=== PATIENT | female | born 1940 | race Caucasian/White ===

== ENCOUNTER 2017-09-28 12:15 | Inpatient (IN) | payer MEDICARE, OTHER, MEDICAID ==
[2017-09-28 12:47] LABS: ABNORMAL IP MESSAGE 1; HEMATOCRIT 30.4 % (37.0-47.0); HEMOGLOBIN 8.8 g/dl (12.0-16.0); MEAN CORPUSCULAR HEMOGLOBIN 25.7 pg (29.0-33.0); MEAN CORPUSCULAR HGB CONC 28.9 g/dl (32.0-37.0); MEAN CORPUSCULAR VOLUME 88.9 fl (82.0-101.0); MEAN PLATELET VOLUME 11.2 fl (7.4-10.4); NUCLEATED RED BLOOD CELLS% 0.7 /100WBC (0.0-0.0); PLATELET COUNT 207 10^3/UL (140-415); RED BLOOD COUNT 3.42 10^6/ul (4.20-5.40); RED CELL DISTRIBUTION WIDTH 19.9 % (11.5-14.5)
[2017-09-28 12:49] LABS: ADD MAN DIFF? YES; POSITIVE DIFF @See below
[2017-09-28] MEDS: METHYLPREDNISOLONE 125 MG INJ IV (12:54)
[2017-09-28 13:10] LABS: INR 0.93; PARTIAL THROMBOPLASTIN TIME 22.8 Sec (25.0-35.0); PROTIME 12.5 Sec (11.9-14.9)
[2017-09-28 13:14] LABS: ALANINE AMINOTRANSFERASE 70 IU/L (13-69); ALBUMIN 3.3 g/dl (3.3-4.9); ALBUMIN/GLOBULIN RATIO 1.22; ALKALINE PHOSPHATASE 100 IU/L (42-121); ANION GAP 16 (8-16); ASPARTATE AMINO TRANSFERASE 14 IU/L (15-46); BLOOD UREA NITROGEN 72 mg/dl (7-20); CALCIUM 8.8 mg/dl (8.4-10.2); CARBON DIOXIDE 23 mmol/L (21-31); CHLORIDE 109 mmol/L (97-110); CREATININE 2.34 mg/dl (0.44-1.00); GLUCOSE 221 mg/dl (70-220); POTASSIUM 4.8 mmol/L (3.5-5.1); SODIUM 143 mmol/L (135-144)
[2017-09-28 13:18] LABS: ANISOCYTOSIS 3+ (0-0); BAND NEUTROPHILS #M 2.6 10^3/ul (0.0-0.6); BAND NEUTROPHILS % (M) 26 % (0-4); ERYTHROBLAST% (NRBC) (M) 2 % (0-0); GIANT THROMBO% (M) 1 % (0-0); METAMYELOCYTES #M 0.1 10^3/ul (0.0-0.0); METAMYELOCYTES %M 1 % (0-0); MICROCYTOSIS 3+ (0-0); MONOCYTE #M 0.3 10^3/ul (0.3-0.9); MONOCYTES % (M) 3 % (0-11); PLATELET ESTIMATE NORMAL; POIKILOCYTOSIS 1+ (0-0); POLYCHROMASIA 3+ (0-0); SEG NEUT #M 7.3 10^3/ul (1.6-7.5); SEGMENTED NEUTROPHILS (M) % 70 % (39-77); SMUDGE%M 6 % (0-0)
[2017-09-28 13:24] LABS: TROPONIN-I 0.036 ng/ml (0.00-0.12)
[2017-09-28 13:25] LABS: LACTIC ACID 1.4 mmol/L (0.5-2.0)
[2017-09-28] MEDS: ALBUTEROL 0.5% (NEB) 2.5 MG/0.5 ML AMP INH (13:26)
[2017-09-28] MEDS: IPRATROPIUM (NEB) 0.5 MG/2.5 ML AMP INH (13:26)
[2017-09-28] MEDS: DILTIAZEM 25 MG INJ IV (13:58)
[2017-09-28] MEDS ORDERED: ACETAMINOPHEN 325 MG TAB PO ×2 (14:00→14:30)
[2017-09-28] MEDS ORDERED: ONDANSETRON 4 MG INJ IV ×2 (14:00→14:30)
[2017-09-28 14:15] LABS: AADO2 Arterial 201.4 mmHg (7.0-24.0); Allen Test ACCEPTAB; Arterial Base Excess -5.5 mmol/L (-3.0-3); Arterial Blood Gas Oxygen Sat 99.6 mmHG (95.0-100.0); Arterial COHb 0.3 % (0.0-3.0); Arterial Fraction of Oxyhgb 98.9 % (93.0-99.0); Arterial HCO3 20.9 mmol/L (22.0-26.0); Arterial MetHb 0.4 % (0.0-1.5); Arterial Total Hemglobin 10.7 g/dl (12.0-18.0); Arterial pCO2 44.4 mmhg (35-45); Blood Gas IEPAP 15/5; MODE MASK - BIPAP; Site Right Radial
[2017-09-28] MEDS ORDERED: DEXTROSE 50% 50 ML SYRINGE IV ×2 (14:30)
[2017-09-28] MEDS ORDERED: VANCOMYCIN IV PER PHARMACY XX (14:30)
[2017-09-28] MEDS ORDERED: GLUCAGON 1 MG INJ IM (14:30)
[2017-09-28] MEDS ORDERED: GLUCOSE GEL 15 GRAM TUBE PO ×2 (14:30)
[2017-09-28] MEDS ORDERED: GLUCOSE GEL 15 GRAM TUBE BUCCAL (14:30)
[2017-09-28] MEDS: CEFEPIME 1GM/50 ML (PMX) 50 ML IVPB ×2 (14:52→15:57)
[2017-09-28] MEDS ORDERED: VANCOMYCIN 1 GM (PMX) 250 ML IVPB (15:57)
[2017-09-28] MEDS ORDERED: VANCOMYCIN 1.25 GM in SOD CHLORIDE 0.9% 250 ML IVPB (16:00)
[2017-09-28] MEDS: VANCOMYCIN 1.25 GM in SOD CHLORIDE 0.45% 250 ML IVPB (16:27)
[2017-09-28] MEDS: AMIODARONE 900 MG in DEXTROSE 5% 482 ML IV (17:07)
[2017-09-28] MEDS: INSULIN ASPART [NOVOLOG] 3 ML PEN SC ×3 (18:00→21:00)
[2017-09-28] MEDS: ALBUMIN HUMAN 25% 100 ML IV ×2 (18:28→22:30)
[2017-09-28] MEDS: LORAZEPAM 2 MG INJ IV (18:29)
[2017-09-28 18:33] LABS: MAGNESIUM 2.3 mg/dl (1.7-2.5)
[2017-09-28 18:33] LABS: PHOSPHORUS 7.2 mg/dl (2.5-4.9)
[2017-09-28] MEDS: SODIUM CHLORIDE 0.9% 1L BAG IV* (19:57)
[2017-09-28 20:14] LABS: AADO2 Arterial 173.2 mmHg (7.0-24.0); Allen Test ACCEPTAB; Arterial Base Excess -6.5 mmol/L (-3.0-3); Arterial Blood Gas Oxygen Sat 99.2 mmHG (95.0-100.0); Arterial COHb 0.3 % (0.0-3.0); Arterial Fraction of Oxyhgb 98.5 % (93.0-99.0); Arterial HCO3 19.7 mmol/L (22.0-26.0); Arterial MetHb 0.4 % (0.0-1.5); Arterial Total Hemglobin 9.3 g/dl (12.0-18.0); Arterial pCO2 42.4 mmhg (35-45); Blood Gas IEPAP 15/5; MODE MASK - BIPAP; Site Right Radial
[2017-09-28] MEDS: CYCLOSPORINE 0.05% OPH DROPERETTE BOTH EYES (21:00)
[2017-09-28] MEDS: MONTELUKAST 10 MG TAB PO (21:00)
[2017-09-28] MEDS: DOCUSATE SODIUM 100 MG CAP PO (21:00)
[2017-09-28 22:34] LABS: LACTIC ACID 1.2 mmol/L (0.5-2.0)
[2017-09-28 23:43] LABS: CREATINE KINASE 23 IU/L (23-200)
[2017-09-28 23:43] LABS: LACTIC ACID 1.4 mmol/L (0.5-2.0)
[2017-09-28 23:55] LABS: CK INDEX 7.7; CK-MB 1.76 ng/ml (0.0-2.4); TROPONIN-I 0.036 ng/ml (0.00-0.12)
[2017-09-29] MEDS: ALBUMIN HUMAN 25% 100 ML IV (01:24)
[2017-09-29] MEDS: ACCU-CHEK XX (02:00)
[2017-09-29] MEDS: LORAZEPAM 2 MG INJ IV (02:54)
[2017-09-29] MEDS: ACETAMINOPHEN 325 MG TAB PO (04:47)
[2017-09-29 06:16] LABS: ABNORMAL IP MESSAGE 1; HEMATOCRIT 29.3 % (37.0-47.0); HEMOGLOBIN 8.5 g/dl (12.0-16.0); MEAN CORPUSCULAR HEMOGLOBIN 25.8 pg (29.0-33.0); MEAN CORPUSCULAR VOLUME 88.8 fl (82.0-101.0); MEAN PLATELET VOLUME 11.3 fl (7.4-10.4); NUCLEATED RED BLOOD CELLS% 3.7 /100WBC (0.0-0.0); PLATELET COUNT 211 10^3/UL (140-415); RED CELL DISTRIBUTION WIDTH 19.8 % (11.5-14.5)
[2017-09-29 06:16] LABS: WHITE BLOOD COUNT 9.8 10^3/ul (4.8-10.8)
[2017-09-29 06:22] LABS: LACTIC ACID 1.9 mmol/L (0.5-2.0)
[2017-09-29 06:42] LABS: INR 1.08; PROTIME 14.1 Sec (11.9-14.9); PT RATIO 1.1
[2017-09-29 06:43] LABS: PARTIAL THROMBOPLASTIN TIME 20.3 Sec (25.0-35.0)
[2017-09-29 06:46] LABS: ADD MAN DIFF? YES; POSITIVE DIFF @See below
[2017-09-29 07:16] LABS: CK-MB 1.36 ng/ml (0.0-2.4); TROPONIN-I 0.038 ng/ml (0.00-0.12)
[2017-09-29 07:23] LABS: CK INDEX 3.2; CREATINE KINASE 42 IU/L (23-200)
[2017-09-29 07:29] LABS: ANION GAP 23 (8-16); BLOOD UREA NITROGEN 77 mg/dl (7-20); CALCIUM 9.3 mg/dl (8.4-10.2); CARBON DIOXIDE 19 mmol/L (21-31); CHLORIDE 108 mmol/L (97-110); CREATININE 2.43 mg/dl (0.44-1.00); GLUCOSE 149 mg/dl (70-220); MAGNESIUM 2.3 mg/dl (1.7-2.5); SODIUM 144 mmol/L (135-144)
[2017-09-29] MEDS: PANTOPRAZOLE (EC) 40 MG TAB PO (07:33)
[2017-09-29 07:53] LABS: HEMOGLOBIN A1C 6.5 % (0-5.9)
[2017-09-29 07:59] LABS: THYROID STIMULATING HORMONE 0.153 MIU/L (0.465-4.680)
[2017-09-29] MEDS: INSULIN ASPART [NOVOLOG] 3 ML PEN SC ×5 (08:00→21:11)
[2017-09-29] MEDS: MULTIVITAMINS THERAPEUTIC TAB PO (09:00)
[2017-09-29] MEDS: PAROXETINE 20 MG TAB PO (09:00)
[2017-09-29] MEDS: DOCUSATE SODIUM 100 MG CAP PO ×2 (09:00→21:00)
[2017-09-29] MEDS: CYCLOSPORINE 0.05% OPH DROPERETTE BOTH EYES ×2 (09:00→21:00)
[2017-09-29] MEDS: HEPARIN 5,000 UNIT/0.5 ML VIAL SC ×2 (09:54→21:10)
[2017-09-29 10:26] LABS: ANISOCYTOSIS 2+ (0-0); BAND NEUTROPHILS % (M) 21 % (0-4); ERYTHROBLAST% (NRBC) (M) 3 % (0-0); GIANT THROMBO% (M) 6 % (0-0); LYMPHOCYTES #M 0.1 10^3/ul (0.8-2.9); LYMPHOCYTES % (M) 2 % (15-51); METAMYELOCYTES %M 1 % (0-0); MICROCYTOSIS 1+ (0-0); MONOCYTES % (M) 1 % (0-11); OVALOCYTES 1+ (0-0); PLATELET ESTIMATE NORMAL; POIKILOCYTOSIS 1+ (0-0); POLYCHROMASIA 2+ (0-0); SEG NEUT #M 7.5 10^3/ul (1.6-7.5); SEGMENTED NEUTROPHILS (M) % 75 % (39-77); SMUDGE%M 2 % (0-0); TOXIC GRANULATION 1+ (0-0)
[2017-09-29] MEDS: morphine 4 MG/ML VIAL IV (11:40)
[2017-09-29] MEDS: NA POLYST SULFON 15 GM/60 ML BTL PO ×2 (13:00→21:04)
[2017-09-29] MEDS: FUROSEMIDE 40 MG INJ IV (13:14)
[2017-09-29 13:51] LABS: FREE T4 (FREE THYROXINE) 1.18 ng/dl (0.78-2.44)
[2017-09-29] MEDS: CEFEPIME 1GM/50 ML (PMX) 50 ML IVPB (14:30)
[2017-09-29 16:52] LABS: AADO2 Arterial 156.1 mmHg (7.0-24.0); Allen Test ACCEPTAB; Arterial Base Excess -7.3 mmol/L (-3.0-3); Arterial Blood Gas Oxygen Sat 94.7 mmHG (95.0-100.0); Arterial COHb 0.3 % (0.0-3.0); Arterial Fraction of Oxyhgb 94.2 % (93.0-99.0); Arterial HCO3 18.3 mmol/L (22.0-26.0); Arterial MetHb 0.2 % (0.0-1.5); Arterial Total Hemglobin 10.3 g/dl (12.0-18.0); Arterial pCO2 37.2 mmhg (35-45); Blood Gas IEPAP 15/5; Blood Gas PS 10; MODE MASK - BIPAP; Site Right Radial
[2017-09-29 20:05] LABS: ANION GAP 24 (8-16); BLOOD UREA NITROGEN 89 mg/dl (7-20); CALCIUM 8.3 mg/dl (8.4-10.2); CARBON DIOXIDE 18 mmol/L (21-31); CHLORIDE 108 mmol/L (97-110); CREATININE 3.33 mg/dl (0.44-1.00); GLUCOSE 126 mg/dl (70-220); SODIUM 143 mmol/L (135-144)
[2017-09-29 20:12] LABS: POTASSIUM 6.5 mmol/L (3.5-5.1)
[2017-09-29] MEDS: DEXTROSE 50% 50 ML SYRINGE IV (21:05)
[2017-09-29] MEDS: MONTELUKAST 10 MG TAB PO (21:08)
[2017-09-30] MEDS ORDERED: CA CHLORIDE 10% 10 ML SYRINGE IV (01:00)
[2017-09-30] MEDS: CALCIUM GLUCONATE 10% 1 GM in DEXTROSE 5% 100 ML IVPB (01:45)
[2017-09-30] MEDS: ACCU-CHEK XX (02:00)
[2017-09-30 02:14] LABS: POTASSIUM 6.2 mmol/L (3.5-5.1)
[2017-09-30] MEDS: INSULIN ASPART [NOVOLOG] 3 ML PEN SC ×2 (03:30→07:35)
[2017-09-30] MEDS: DEXTROSE 50% 50 ML SYRINGE IV (03:31)
[2017-09-30 05:14] LABS: ABNORMAL IP MESSAGE 1; HEMOGLOBIN 8.8 g/dl (12.0-16.0); MEAN CORPUSCULAR HEMOGLOBIN 25.9 pg (29.0-33.0); MEAN CORPUSCULAR HGB CONC 29.3 g/dl (32.0-37.0); MEAN CORPUSCULAR VOLUME 88.2 fl (82.0-101.0); MEAN PLATELET VOLUME 11.7 fl (7.4-10.4); NUCLEATED RED BLOOD CELLS% 4.3 /100WBC (0.0-0.0); PLATELET COUNT 187 10^3/UL (140-415); RED CELL DISTRIBUTION WIDTH 19.6 % (11.5-14.5)
[2017-09-30 05:14] LABS: WHITE BLOOD COUNT 17.9 10^3/ul (4.8-10.8)
[2017-09-30 05:23] LABS: ADD MAN DIFF? YES; POSITIVE DIFF @See below
[2017-09-30 05:56] LABS: B-TYPE NATRIURETIC PEPTIDE 18300 PG/ML (0-450)
[2017-09-30] MEDS: PANTOPRAZOLE (EC) 40 MG TAB PO (07:05)
[2017-09-30 07:23] LABS: ALBUMIN 3.9 g/dl (3.3-4.9); ANION GAP 25 (8-16); BLOOD UREA NITROGEN 99 mg/dl (7-20); CALCIUM 7.9 mg/dl (8.4-10.2); CARBON DIOXIDE 15 mmol/L (21-31); CHLORIDE 109 mmol/L (97-110); CREATININE 3.93 mg/dl (0.44-1.00); GLUCOSE 147 mg/dl (70-220); PHOSPHORUS 10.7 mg/dl (2.5-4.9); SODIUM 143 mmol/L (135-144)
[2017-09-30 07:31] LABS: POTASSIUM 6.4 mmol/L (3.5-5.1)
[2017-09-30 08:25] LABS: AADO2 Arterial 96.5 mmHg (7.0-24.0); Allen Test ACCEPTAB; Arterial Base Excess -10.4 mmol/L (-3.0-3); Arterial Blood Gas Oxygen Sat 89.8 mmHG (95.0-100.0); Arterial COHb 0.3 % (0.0-3.0); Arterial Fraction of Oxyhgb 89.3 % (93.0-99.0); Arterial HCO3 16.3 mmol/L (22.0-26.0); Arterial MetHb 0.3 % (0.0-1.5); Arterial pCO2 39.1 mmhg (35-45); Blood Gas IEPAP 15/5; Blood Gas PS 1016; MODE MASK - BIPAP; Site Right Radial
[2017-09-30] MEDS ORDERED: BUMETANIDE 1 MG INJ IV (08:30)
[2017-09-30 08:51] LABS: ANION GAP 31 (8-16); BLOOD UREA NITROGEN 101 mg/dl (7-20); CALCIUM 7.9 mg/dl (8.4-10.2); CARBON DIOXIDE 15 mmol/L (21-31); CHLORIDE 108 mmol/L (97-110); CREATININE 3.86 mg/dl (0.44-1.00); GLUCOSE 141 mg/dl (70-220); SODIUM 148 mmol/L (135-144)
[2017-09-30 08:59] LABS: POTASSIUM 6.4 mmol/L (3.5-5.1)
[2017-09-30] MEDS: PAROXETINE 20 MG TAB PO (09:00)
[2017-09-30] MEDS: DOCUSATE SODIUM 100 MG CAP PO ×2 (09:00→21:00)
[2017-09-30] MEDS: MULTIVITAMINS THERAPEUTIC TAB PO (09:00)
[2017-09-30] MEDS: CYCLOSPORINE 0.05% OPH DROPERETTE BOTH EYES ×2 (09:00→21:50)
[2017-09-30] MEDS: NA BICARBONATE 8.4% 50 ML SYG IV (09:04)
[2017-09-30] MEDS: HEPARIN 5,000 UNIT/0.5 ML VIAL SC ×2 (09:08→21:52)
[2017-09-30] MEDS: BUMETANIDE 2 MG in DEXTROSE 5% 17 ML IV (09:20)
[2017-09-30 09:31] LABS: CHOLESTEROL 146 mg/dl (100-200)
[2017-09-30 09:31] LABS: HDL CHOLESTEROL 24 mg/dl (33-92); LDL CHOLESTEROL,CALCULATED 80 mg/dl; TRIGLYCERIDES 208 mg/dl (0-149)
[2017-09-30] MEDS: LACTULOSE 30ML CUP PO (09:39)
[2017-09-30 09:45] LABS: BAND NEUTROPHILS #M 2.3 10^3/ul (0.0-0.6); BAND NEUTROPHILS % (M) 13 % (0-4); ERYTHROBLAST% (NRBC) (M) 9 % (0-0); GIANT THROMBO% (M) 3 % (0-0); LYMPHOCYTES #M 1.7 10^3/ul (0.8-2.9); LYMPHOCYTES % (M) 10 % (15-51); METAMYELOCYTES #M 0.3 10^3/ul (0.0-0.0); METAMYELOCYTES %M 2 % (0-0); MONOCYTE #M 0.5 10^3/ul (0.3-0.9); MONOCYTES % (M) 3 % (0-11); MYELOCYTES #M 0.5 10^3/ul (0.0-0.0); MYELOCYTES % (M) 3 % (0-0); PLATELET ESTIMATE NORMAL; PLATELET MORPHOLOGY COMMENT @See below; POIKILOCYTOSIS 1+ (0-0); POLYCHROMASIA 1+ (0-0); SEG NEUT #M 12.8 10^3/ul (1.6-7.5); SEGMENTED NEUTROPHILS (M) % 69 % (39-77); SMUDGE%M 5 % (0-0)
[2017-09-30] MEDS: LIDOCAINE 1% (MPF) 5 ML VIAL SC (10:30)
[2017-09-30] MEDS: HYDROCORTISONE 100 MG INJ IV ×3 (11:00→22:00)
[2017-09-30] MEDS: Insulin NOVOLOG SS MILD Algorithm (NPO/TPN/ENTERAL FEEDS) SC ×3 (13:00→21:00)
[2017-09-30 13:46] LABS: MAGNESIUM 2.3 mg/dl (1.7-2.5)
[2017-09-30 14:13] LABS: VANCOMYCIN,RANDOM 11.4 ug/ml
[2017-09-30 14:18] LABS: HEPATITIS B SURFACE ANTIGEN NEGATIVE (NEGATIVE)
[2017-09-30] MEDS ORDERED: VANCOMYCIN 1 GM 250 ML IVPB (16:00)
[2017-09-30] MEDS: HEPARIN 1000 UNITS/ML 10 ML INJ CATHETER (16:07)
[2017-09-30] MEDS: CEFEPIME 1GM/50 ML (PMX) 50 ML IVPB (16:34)
[2017-09-30] MEDS: VANCOMYCIN 1 GM 250 ML IVPB (16:35)
[2017-09-30] MEDS ORDERED: INSULIN ASPART [NOVOLOG] 3 ML PEN SC (17:00)
[2017-09-30 17:53] LABS: ANION GAP 22 (8-16); BLOOD UREA NITROGEN 49 mg/dl (7-20); CARBON DIOXIDE 29 mmol/L (21-31); CHLORIDE 96 mmol/L (97-110); CREATININE 2.06 mg/dl (0.44-1.00); GLUCOSE 102 mg/dl (70-220); POTASSIUM 3.9 mmol/L (3.5-5.1); SODIUM 143 mmol/L (135-144)
[2017-09-30 18:04] LABS: PHOSPHORUS 5.7 mg/dl (2.5-4.9)
[2017-09-30] MEDS: MONTELUKAST 10 MG TAB PO (21:00)
[2017-10-01] MEDS: Insulin NOVOLOG SS MILD Algorithm (NPO/TPN/ENTERAL FEEDS) SC ×6 (01:00→21:00)
[2017-10-01] MEDS: ACCU-CHEK XX (02:00)
[2017-10-01] MEDS: HYDROCORTISONE 100 MG INJ IV ×3 (06:37→22:03)
[2017-10-01] MEDS: PANTOPRAZOLE (EC) 40 MG TAB PO (06:37)
[2017-10-01 06:39] LABS: WHITE BLOOD COUNT 12.7 10^3/ul (4.8-10.8)
[2017-10-01 06:39] LABS: ABNORMAL IP MESSAGE 1; HEMATOCRIT 28.6 % (37.0-47.0); HEMOGLOBIN 8.6 g/dl (12.0-16.0); MEAN CORPUSCULAR HEMOGLOBIN 25.9 pg (29.0-33.0); MEAN CORPUSCULAR HGB CONC 30.1 g/dl (32.0-37.0); MEAN CORPUSCULAR VOLUME 86.1 fl (82.0-101.0); MEAN PLATELET VOLUME 12.8 fl (7.4-10.4); NUCLEATED RED BLOOD CELLS% 1.3 /100WBC (0.0-0.0); PLATELET COUNT 113 10^3/UL (140-415); RED BLOOD COUNT 3.32 10^6/ul (4.20-5.40); RED CELL DISTRIBUTION WIDTH 19.2 % (11.5-14.5)
[2017-10-01 06:43] LABS: ADD MAN DIFF? YES; POSITIVE DIFF @See below
[2017-10-01 06:44] LABS: MAGNESIUM 2.2 mg/dl (1.7-2.5)
[2017-10-01 06:44] LABS: ALBUMIN 3.4 g/dl (3.3-4.9); ALBUMIN/GLOBULIN RATIO 1.41; ALKALINE PHOSPHATASE 184 IU/L (42-121); ANION GAP 21 (8-16); BILIRUBIN,INDIRECT 0.2 mg/dl (0-1.1); BILIRUBIN,TOTAL 0.4 mg/dl (0.2-1.3); BLOOD UREA NITROGEN 67 mg/dl (7-20); CALCIUM 7.6 mg/dl (8.4-10.2); CARBON DIOXIDE 26 mmol/L (21-31); CHLORIDE 100 mmol/L (97-110); CREATININE 2.64 mg/dl (0.44-1.00); GLUCOSE 123 mg/dl (70-220); POTASSIUM 3.9 mmol/L (3.5-5.1); SODIUM 143 mmol/L (135-144); TOTAL PROTEIN 5.8 g/dl (6.1-8.1)
[2017-10-01 07:01] LABS: ALBUMIN 3.4 g/dl (3.3-4.9); ANION GAP 20 (8-16); BLOOD UREA NITROGEN 67 mg/dl (7-20); CALCIUM 7.5 mg/dl (8.4-10.2); CARBON DIOXIDE 25 mmol/L (21-31); CHLORIDE 102 mmol/L (97-110); CREATININE 2.56 mg/dl (0.44-1.00); GLUCOSE 114 mg/dl (70-220); PHOSPHORUS 8.1 mg/dl (2.5-4.9); POTASSIUM 3.9 mmol/L (3.5-5.1); SODIUM 143 mmol/L (135-144)
[2017-10-01 07:36] LABS: ALANINE AMINOTRANSFERASE 3855 IU/L (13-69); ASPARTATE AMINO TRANSFERASE 1630 IU/L (15-46)
[2017-10-01] MEDS: CYCLOSPORINE 0.05% OPH DROPERETTE BOTH EYES ×2 (09:00→21:00)
[2017-10-01 09:28] LABS: ANISOCYTOSIS 3+ (0-0); BAND NEUTROPHILS #M 1.3 10^3/ul (0.0-0.6); BAND NEUTROPHILS % (M) 11 % (0-4); ERYTHROBLAST% (NRBC) (M) 3 % (0-0); LYMPHOCYTES #M 0.7 10^3/ul (0.8-2.9); LYMPHOCYTES % (M) 6 % (15-51); METAMYELOCYTES #M 0.1 10^3/ul (0.0-0.0); METAMYELOCYTES %M 1 % (0-0); MICROCYTOSIS 3+ (0-0); MONOCYTE #M 0.2 10^3/ul (0.3-0.9); MONOCYTES % (M) 2 % (0-11); MYELOCYTES #M 0.2 10^3/ul (0.0-0.0); MYELOCYTES % (M) 2 % (0-0); PLATELET ESTIMATE DECREASED; POIKILOCYTOSIS 1+ (0-0); POLYCHROMASIA 2+ (0-0); SEG NEUT #M 10.1 10^3/ul (1.6-7.5); SEGMENTED NEUTROPHILS (M) % 78 % (39-77); SMUDGE%M 1 % (0-0)
[2017-10-01] MEDS: PAROXETINE 20 MG TAB PO (09:37)
[2017-10-01] MEDS: MULTIVITAMINS THERAPEUTIC TAB PO (09:37)
[2017-10-01] MEDS: DOCUSATE SODIUM 100 MG CAP PO ×2 (09:39→22:04)
[2017-10-01] MEDS: HEPARIN 5,000 UNIT/0.5 ML VIAL SC ×2 (09:41→22:10)
[2017-10-01] MEDS: CEFEPIME 1GM/50 ML (PMX) 50 ML IVPB (13:59)
[2017-10-01] MEDS: SILVER SULFADIAZINE 1% 25 GM CR TOP (15:16)
[2017-10-01] MEDS: DILTIAZEM-D5W 125MG/125ML DRIP 125 ML IV (18:38)
[2017-10-01] MEDS: LORAZEPAM 0.5 MG TAB PO (20:25)
[2017-10-01] MEDS: MONTELUKAST 10 MG TAB PO (22:04)
[2017-10-01] MEDS: HEPARIN 1000 UNITS/ML 10 ML INJ CATHETER (22:54)
[2017-10-02] MEDS: Insulin NOVOLOG SS MILD Algorithm (NPO/TPN/ENTERAL FEEDS) SC ×6 (01:00→21:00)
[2017-10-02] MEDS: ACCU-CHEK XX (02:00)
[2017-10-02] MEDS: HYDROCORTISONE 100 MG INJ IV ×3 (05:20→21:34)
[2017-10-02 06:21] LABS: ABNORMAL IP MESSAGE 1; HEMATOCRIT 31.3 % (37.0-47.0); HEMOGLOBIN 9.5 g/dl (12.0-16.0); MEAN CORPUSCULAR HGB CONC 30.4 g/dl (32.0-37.0); MEAN CORPUSCULAR VOLUME 85.8 fl (82.0-101.0); MEAN PLATELET VOLUME 11.7 fl (7.4-10.4); NUCLEATED RED BLOOD CELLS% 2.1 /100WBC (0.0-0.0); PLATELET COUNT 125 10^3/UL (140-415); RED BLOOD COUNT 3.65 10^6/ul (4.20-5.40); RED CELL DISTRIBUTION WIDTH 18.4 % (11.5-14.5)
[2017-10-02 06:21] LABS: WHITE BLOOD COUNT 16.5 10^3/ul (4.8-10.8)
[2017-10-02 06:32] LABS: BLOOD UREA NITROGEN 47 mg/dl (7-20); CALCIUM 8.9 mg/dl (8.4-10.2); CARBON DIOXIDE 25 mmol/L (21-31); CHLORIDE 102 mmol/L (97-110); CREATININE 1.85 mg/dl (0.44-1.00); GLUCOSE 122 mg/dl (70-220); MAGNESIUM 2.2 mg/dl (1.7-2.5); PHOSPHORUS 6.1 mg/dl (2.5-4.9); SODIUM 143 mmol/L (135-144)
[2017-10-02 06:59] LABS: ADD MAN DIFF? YES; POSITIVE DIFF @See below
[2017-10-02 07:41] LABS: ANION GAP 20 (8-16); POTASSIUM 3.9 mmol/L (3.5-5.1)
[2017-10-02] MEDS: PANTOPRAZOLE (EC) 40 MG TAB PO (08:52)
[2017-10-02] MEDS: PAROXETINE 20 MG TAB PO (08:52)
[2017-10-02] MEDS: MULTIVITAMINS THERAPEUTIC TAB PO (08:52)
[2017-10-02] MEDS: HEPARIN 5,000 UNIT/0.5 ML VIAL SC ×2 (08:57→21:33)
[2017-10-02] MEDS: DOCUSATE SODIUM 100 MG CAP PO ×2 (08:57→21:32)
[2017-10-02] MEDS: SILVER SULFADIAZINE 1% 25 GM CR TOP (09:00)
[2017-10-02 09:05] LABS: AADO2 Arterial 18.7 mmHg (7.0-24.0); Allen Test ACCEPTAB; Arterial Blood Gas Oxygen Sat 98.8 mmHG (95.0-100.0); Arterial COHb 0.2 % (0.0-3.0); Arterial Fraction of Oxyhgb 98.2 % (93.0-99.0); Arterial HCO3 26.8 mmol/L (22.0-26.0); Arterial MetHb 0.4 % (0.0-1.5); Arterial Total Hemglobin 11.7 g/dl (12.0-18.0); Arterial pCO2 42.6 mmhg (35-45); MODE NASAL CANNULA; Site Right Radial
[2017-10-02 09:28] LABS: ANISOCYTOSIS 2+ (0-0); BAND NEUTROPHILS #M 1.3 10^3/ul (0.0-0.6); BAND NEUTROPHILS % (M) 8 % (0-4); ERYTHROBLAST% (NRBC) (M) 5 % (0-0); LYMPHOCYTES #M 0.1 10^3/ul (0.8-2.9); LYMPHOCYTES % (M) 1 % (15-51); MICROCYTOSIS 2+ (0-0); MONOCYTE #M 0.1 10^3/ul (0.3-0.9); MONOCYTES % (M) 1 % (0-11); MYELOCYTES #M 0.8 10^3/ul (0.0-0.0); MYELOCYTES % (M) 5 % (0-0); PLATELET ESTIMATE DECREASED; POLYCHROMASIA 1+ (0-0); PROMYELOCYTES #M 0.4 10^3/ul (0-0); PROMYELOCYTES % (M) 3 % (0-0); REACTIVE LYMPHOCYTES #M 0.1 10^3/ul (0.0-0.0); REACTIVE LYMPHOCYTES% (M) 1 % (0-0); SEG NEUT #M 13.6 10^3/ul (1.6-7.5); SEGMENTED NEUTROPHILS (M) % 81 % (39-77)
[2017-10-02] MEDS: HYDROCODONE/APAP (5/325) TAB PO ×2 (12:48→19:51)
[2017-10-02] MEDS: SEVELAMER 400 MG TAB PO ×2 (12:49→17:49)
[2017-10-02] MEDS: CYCLOSPORINE 0.05% OPH DROPERETTE BOTH EYES ×2 (12:49→21:40)
[2017-10-02] MEDS: DILTIAZEM-D5W 125MG/125ML DRIP 125 ML IV (12:51)
[2017-10-02] MEDS: DILTIAZEM 60 MG TAB PO ×2 (17:45→21:37)
[2017-10-02 18:43] LABS: ADD UMIC YES; UR ASCORBIC ACID NEGATIVE (NEGATIVE); UR BACTERIA FEW /HPF (NONE SEEN); UR BILIRUBIN (Dip) NEGATIVE (NEGATIVE); UR BLOOD (Dip) 1+ mg/dL (NEGATIVE); UR BUDDING YEAST MANY /HPF (NONE SEEN); UR CLARITY CLOUDY (CLEAR); UR COLOR AMBER (YELLOW); UR GLUCOSE (Dip) NEGATIVE (NEGATIVE); UR KETONES (Dip) NEGATIVE (NEGATIVE); UR LEUKOCYTE ESTERASE (Dip) 3+ Leu/ul (NEGATIVE); UR NITRITE (Dip) NEGATIVE (NEGATIVE); UR RBC 49 /HPF (0-5); UR SPECIFIC GRAVITY (Dip) 1.017 (1.003-1.030); UR TOTAL PROTEIN (Dip) 2+ mg/dl (NEGATIVE); UR UROBILINOGEN (Dip) NEGATIVE (NEGATIVE); UR WBC 65 /HPF (0-5)
[2017-10-02 18:47] LABS: CREATININE,URINE RANDOM 132.43 mg/dl (20-320)
[2017-10-02 20:03] LABS: SODIUM,URINE RANDOM < 13 mmol/L (30-90)
[2017-10-02] MEDS: HEPARIN 1000 UNITS/ML 10 ML INJ CATHETER (21:14)
[2017-10-02] MEDS: CEFEPIME 1GM/50 ML (PMX) 50 ML IVPB (21:32)
[2017-10-02] MEDS: MONTELUKAST 10 MG TAB PO (21:33)
[2017-10-03] MEDS: Insulin NOVOLOG SS MILD Algorithm (NPO/TPN/ENTERAL FEEDS) SC ×6 (01:03→21:26)
[2017-10-03] MEDS: ACCU-CHEK XX ×4 (01:03→21:22)
[2017-10-03 06:03] LABS: WHITE BLOOD COUNT 17.4 10^3/ul (4.8-10.8)
[2017-10-03 06:03] LABS: ABNORMAL IP MESSAGE 1; HEMATOCRIT 33.3 % (37.0-47.0); HEMOGLOBIN 9.9 g/dl (12.0-16.0); MEAN CORPUSCULAR HEMOGLOBIN 25.5 pg (29.0-33.0); MEAN CORPUSCULAR HGB CONC 29.7 g/dl (32.0-37.0); MEAN CORPUSCULAR VOLUME 85.8 fl (82.0-101.0); MEAN PLATELET VOLUME 11.9 fl (7.4-10.4); NUCLEATED RED BLOOD CELLS% 2.2 /100WBC (0.0-0.0); PLATELET COUNT 149 10^3/UL (140-415); RED BLOOD COUNT 3.88 10^6/ul (4.20-5.40); RED CELL DISTRIBUTION WIDTH 18.6 % (11.5-14.5)
[2017-10-03 06:06] LABS: ADD MAN DIFF? YES; POSITIVE DIFF @See below
[2017-10-03] MEDS: DILTIAZEM 60 MG TAB PO ×2 (06:15→13:29)
[2017-10-03 06:17] LABS: ANION GAP 15 (8-16); BLOOD UREA NITROGEN 42 mg/dl (7-20); CALCIUM 9.3 mg/dl (8.4-10.2); CARBON DIOXIDE 28 mmol/L (21-31); CHLORIDE 102 mmol/L (97-110); CREATININE 1.86 mg/dl (0.44-1.00); GLUCOSE 149 mg/dl (70-220); PHOSPHORUS 5.4 mg/dl (2.5-4.9); POTASSIUM 4.2 mmol/L (3.5-5.1); SODIUM 141 mmol/L (135-144)
[2017-10-03 06:31] LABS: VANCOMYCIN,RANDOM 12.1 ug/ml
[2017-10-03 07:36] LABS: MAGNESIUM 2.3 mg/dl (1.7-2.5)
[2017-10-03 07:49] LABS: ANISOCYTOSIS 3+ (0-0); BAND NEUTROPHILS #M 0.5 10^3/ul (0.0-0.6); BAND NEUTROPHILS % (M) 3 % (0-4); ERYTHROBLAST% (NRBC) (M) 8 % (0-0); LYMPHOCYTES #M 0.5 10^3/ul (0.8-2.9); LYMPHOCYTES % (M) 3 % (15-51); METAMYELOCYTES #M 0.8 10^3/ul (0.0-0.0); METAMYELOCYTES %M 5 % (0-0); MICROCYTOSIS 3+ (0-0); MONOCYTE #M 0.8 10^3/ul (0.3-0.9); MONOCYTES % (M) 5 % (0-11); MYELOCYTES #M 0.3 10^3/ul (0.0-0.0); MYELOCYTES % (M) 2 % (0-0); PLATELET ESTIMATE NORMAL; POIKILOCYTOSIS 1+ (0-0); POLYCHROMASIA 3+ (0-0); SEG NEUT #M 14.4 10^3/ul (1.6-7.5); SEGMENTED NEUTROPHILS (M) % 82 % (39-77); SMUDGE%M 4 % (0-0)
[2017-10-03] MEDS: SEVELAMER 400 MG TAB PO ×3 (08:47→18:52)
[2017-10-03] MEDS: DOCUSATE SODIUM 100 MG CAP PO ×2 (08:47→21:27)
[2017-10-03] MEDS: PANTOPRAZOLE (EC) 40 MG TAB PO (08:48)
[2017-10-03] MEDS: MULTIVITAMINS THERAPEUTIC TAB PO (08:48)
[2017-10-03] MEDS: PAROXETINE 20 MG TAB PO (08:48)
[2017-10-03] MEDS: CYCLOSPORINE 0.05% OPH DROPERETTE BOTH EYES ×2 (08:48→21:28)
[2017-10-03] MEDS: HEPARIN 5,000 UNIT/0.5 ML VIAL SC ×2 (08:51→21:27)
[2017-10-03] MEDS: HYDROCORTISONE 100 MG INJ IV ×3 (08:53→21:22)
[2017-10-03] MEDS: SILVER SULFADIAZINE 1% 25 GM CR TOP (09:17)
[2017-10-03] MEDS: VANCOMYCIN 1 GM 250 ML IVPB (13:30)
[2017-10-03] MEDS: CEFEPIME 1GM/50 ML (PMX) 50 ML IVPB (14:30)
[2017-10-03] MEDS: HYDROCODONE/APAP (5/325) TAB PO ×2 (16:39→21:37)
[2017-10-03] MEDS: DILTIAZEM 90 MG TAB PO (18:00)
[2017-10-03] MEDS: MONTELUKAST 10 MG TAB PO (21:27)
[2017-10-04] MEDS: DILTIAZEM 90 MG TAB PO ×4 (00:54→18:06)
[2017-10-04] MEDS: ACCU-CHEK XX ×5 (01:01→21:35)
[2017-10-04] MEDS: Insulin NOVOLOG SS MILD Algorithm (NPO/TPN/ENTERAL FEEDS) SC ×2 (01:01→06:04)
[2017-10-04] MEDS: HYDROCODONE/APAP (5/325) TAB PO ×3 (04:37→17:56)
[2017-10-04] MEDS: SEVELAMER 400 MG TAB PO ×3 (08:00→18:09)
[2017-10-04 08:25] LABS: ABNORMAL IP MESSAGE 1; HEMATOCRIT 33.3 % (37.0-47.0); HEMOGLOBIN 9.8 g/dl (12.0-16.0); MEAN CORPUSCULAR HEMOGLOBIN 25.3 pg (29.0-33.0); MEAN CORPUSCULAR HGB CONC 29.4 g/dl (32.0-37.0); MEAN CORPUSCULAR VOLUME 85.8 fl (82.0-101.0); MEAN PLATELET VOLUME 11.6 fl (7.4-10.4); NUCLEATED RED BLOOD CELLS% 0.9 /100WBC (0.0-0.0); PLATELET COUNT 133 10^3/UL (140-415); RED BLOOD COUNT 3.88 10^6/ul (4.20-5.40); RED CELL DISTRIBUTION WIDTH 18.6 % (11.5-14.5)
[2017-10-04 08:30] LABS: ADD MAN DIFF? YES; POSITIVE DIFF @See below
[2017-10-04] MEDS: PANTOPRAZOLE (EC) 40 MG TAB PO (08:32)
[2017-10-04] MEDS: HYDROCORTISONE 100 MG INJ IV ×3 (08:32→21:35)
[2017-10-04] MEDS: DOCUSATE SODIUM 100 MG CAP PO ×2 (08:32→21:35)
[2017-10-04] MEDS: PAROXETINE 20 MG TAB PO (08:32)
[2017-10-04] MEDS: MULTIVITAMINS THERAPEUTIC TAB PO (08:33)
[2017-10-04] MEDS: SILVER SULFADIAZINE 1% 25 GM CR TOP (08:34)
[2017-10-04] MEDS: INSULIN ASPART [NOVOLOG] 3 ML PEN SC ×5 (08:39→21:36)
[2017-10-04] MEDS: HEPARIN 5,000 UNIT/0.5 ML VIAL SC ×2 (08:39→21:37)
[2017-10-04 08:42] LABS: ANION GAP 18 (8-16); BLOOD UREA NITROGEN 75 mg/dl (7-20); CALCIUM 8.9 mg/dl (8.4-10.2); CARBON DIOXIDE 25 mmol/L (21-31); CHLORIDE 103 mmol/L (97-110); CREATININE 2.81 mg/dl (0.44-1.00); GLUCOSE 153 mg/dl (70-220); MAGNESIUM 2.4 mg/dl (1.7-2.5); SODIUM 142 mmol/L (135-144)
[2017-10-04] MEDS: FUROSEMIDE 40 MG INJ IV ×2 (08:51→18:07)
[2017-10-04] MEDS: CYCLOSPORINE 0.05% OPH DROPERETTE BOTH EYES ×2 (09:00→21:35)
[2017-10-04 09:03] LABS: ANISOCYTOSIS 2+ (0-0); BAND NEUTROPHILS #M 0.7 10^3/ul (0.0-0.6); BAND NEUTROPHILS % (M) 4 % (0-4); ERYTHROBLAST% (NRBC) (M) 1 % (0-0); GIANT THROMBO% (M) 1 % (0-0); LYMPHOCYTES #M 0.5 10^3/ul (0.8-2.9); LYMPHOCYTES % (M) 3 % (15-51); METAMYELOCYTES #M 0.3 10^3/ul (0.0-0.0); METAMYELOCYTES %M 2 % (0-0); MICROCYTOSIS 2+ (0-0); MONOCYTE #M 0.7 10^3/ul (0.3-0.9); MONOCYTES % (M) 4 % (0-11); PLATELET ESTIMATE NORMAL; POIKILOCYTOSIS 1+ (0-0); POLYCHROMASIA 2+ (0-0); REACTIVE LYMPHOCYTES #M 0.1 10^3/ul (0.0-0.0); REACTIVE LYMPHOCYTES% (M) 1 % (0-0); SEG NEUT #M 15.6 10^3/ul (1.6-7.5); SEGMENTED NEUTROPHILS (M) % 86 % (39-77); SMUDGE%M 1 % (0-0)
[2017-10-04] MEDS: CEFEPIME 1GM/50 ML (PMX) 50 ML IVPB (15:18)
[2017-10-04 18:46] LABS: CREATININE, RANDOM URINE 140 mg/dL (20-320); MICROALBUMIN 34.4 mg/dL; MICROALBUMIN/CREATININE RATIO 246 (<30)
[2017-10-04] MEDS: MONTELUKAST 10 MG TAB PO (21:35)
[2017-10-05] MEDS: DILTIAZEM 90 MG TAB PO ×4 (00:17→17:18)
[2017-10-05] MEDS: HYDROCODONE/APAP (5/325) TAB PO ×2 (00:17→15:34)
[2017-10-05] MEDS: ACCU-CHEK XX ×5 (02:25→21:14)
[2017-10-05] MEDS: HYDROCORTISONE 100 MG INJ IV (05:50)
[2017-10-05] MEDS: FUROSEMIDE 40 MG INJ IV ×2 (05:50→17:18)
[2017-10-05] MEDS: MULTIVITAMINS THERAPEUTIC TAB PO (08:10)
[2017-10-05] MEDS: PAROXETINE 20 MG TAB PO (08:10)
[2017-10-05] MEDS: SEVELAMER 400 MG TAB PO ×3 (08:10→17:17)
[2017-10-05] MEDS: PANTOPRAZOLE (EC) 40 MG TAB PO (08:10)
[2017-10-05] MEDS: DOCUSATE SODIUM 100 MG CAP PO ×2 (08:11→20:53)
[2017-10-05] MEDS: CYCLOSPORINE 0.05% OPH DROPERETTE BOTH EYES ×2 (08:11→20:53)
[2017-10-05] MEDS: SILVER SULFADIAZINE 1% 25 GM CR TOP (08:12)
[2017-10-05] MEDS: INSULIN ASPART [NOVOLOG] 3 ML PEN SC ×4 (08:13→20:55)
[2017-10-05] MEDS: HEPARIN 5,000 UNIT/0.5 ML VIAL SC ×2 (08:14→20:58)
[2017-10-05] MEDS: METOLAZONE 2.5 MG TAB PO ×2 (09:00→12:28)
[2017-10-05] MEDS ORDERED: GUAIFENESIN/DM 5ML CUP PO (11:30)
[2017-10-05 13:58] LABS: ABNORMAL IP MESSAGE 1; HEMATOCRIT 32.7 % (37.0-47.0); MEAN CORPUSCULAR HEMOGLOBIN 26.1 pg (29.0-33.0); MEAN CORPUSCULAR HGB CONC 30.6 g/dl (32.0-37.0); MEAN CORPUSCULAR VOLUME 85.4 fl (82.0-101.0); MEAN PLATELET VOLUME 11.6 fl (7.4-10.4); NUCLEATED RED BLOOD CELLS% 0.6 /100WBC (0.0-0.0); PLATELET COUNT 153 10^3/UL (140-415); RED BLOOD COUNT 3.83 10^6/ul (4.20-5.40); RED CELL DISTRIBUTION WIDTH 18.6 % (11.5-14.5)
[2017-10-05 13:58] LABS: WHITE BLOOD COUNT 16.7 10^3/ul (4.8-10.8)
[2017-10-05 13:59] LABS: ADD MAN DIFF? YES; POSITIVE DIFF @See below
[2017-10-05 14:16] LABS: ANION GAP 15 (8-16); BLOOD UREA NITROGEN 101 mg/dl (7-20); CALCIUM 8.5 mg/dl (8.4-10.2); CARBON DIOXIDE 28 mmol/L (21-31); CHLORIDE 100 mmol/L (97-110); GLUCOSE 245 mg/dl (70-220); MAGNESIUM 1.9 mg/dl (1.7-2.5); PHOSPHORUS 5.2 mg/dl (2.5-4.9); POTASSIUM 3.5 mmol/L (3.5-5.1); SODIUM 139 mmol/L (135-144)
[2017-10-05 14:19] LABS: ANISOCYTOSIS 2+ (0-0); BAND NEUTROPHILS #M 0.6 10^3/ul (0.0-0.6); BAND NEUTROPHILS % (M) 4 % (0-4); GIANT THROMBO% (M) 1 % (0-0); LYMPHOCYTES #M 0.3 10^3/ul (0.8-2.9); LYMPHOCYTES % (M) 2 % (15-51); MICROCYTOSIS 2+ (0-0); MONOCYTE #M 0.1 10^3/ul (0.3-0.9); MONOCYTES % (M) 1 % (0-11); MYELOCYTES #M 0.5 10^3/ul (0.0-0.0); MYELOCYTES % (M) 3 % (0-0); PLATELET ESTIMATE NORMAL; PROMYELOCYTES #M 0.1 10^3/ul (0-0); PROMYELOCYTES % (M) 1 % (0-0); REACTIVE LYMPHOCYTES #M 0.1 10^3/ul (0.0-0.0); REACTIVE LYMPHOCYTES% (M) 1 % (0-0); SEG NEUT #M 14.8 10^3/ul (1.6-7.5); SEGMENTED NEUTROPHILS (M) % 88 % (39-77); SMUDGE%M 17 % (0-0)
[2017-10-05] MEDS: LACTOBACILLUS RHAMNOSUS CAP PO (20:53)
[2017-10-05] MEDS: MONTELUKAST 10 MG TAB PO (20:53)
[2017-10-06] MEDS: HYDROCODONE/APAP (5/325) TAB PO ×3 (00:04→14:17)
[2017-10-06] MEDS: DILTIAZEM 90 MG TAB PO ×4 (00:10→17:21)
[2017-10-06] MEDS: ACCU-CHEK XX ×5 (02:11→21:16)
[2017-10-06] MEDS: FUROSEMIDE 40 MG INJ IV ×2 (06:21→17:21)
[2017-10-06 07:12] LABS: HAAIG REFLEX REFLEX FILED
[2017-10-06 07:27] LABS: WHITE BLOOD COUNT 15.7 10^3/ul (4.8-10.8)
[2017-10-06 07:27] LABS: ABNORMAL IP MESSAGE 1; HEMATOCRIT 37.1 % (37.0-47.0); HEMOGLOBIN 11.3 g/dl (12.0-16.0); MEAN CORPUSCULAR HGB CONC 30.5 g/dl (32.0-37.0); MEAN CORPUSCULAR VOLUME 85.5 fl (82.0-101.0); MEAN PLATELET VOLUME 11.1 fl (7.4-10.4); NUCLEATED RED BLOOD CELLS% 0.4 /100WBC (0.0-0.0); PLATELET COUNT 146 10^3/UL (140-415); RED BLOOD COUNT 4.34 10^6/ul (4.20-5.40); RED CELL DISTRIBUTION WIDTH 18.6 % (11.5-14.5)
[2017-10-06 07:29] LABS: POSITIVE DIFF @See below
[2017-10-06 07:30] LABS: ADD MAN DIFF? YES
[2017-10-06 07:52] LABS: INR 0.95; PROTIME 12.8 Sec (11.9-14.9)
[2017-10-06 08:06] LABS: ALANINE AMINOTRANSFERASE 595 IU/L (13-69); ALBUMIN 3.6 g/dl (3.3-4.9); ALBUMIN/GLOBULIN RATIO 1.28; ALKALINE PHOSPHATASE 241 IU/L (42-121); ANION GAP 17 (8-16); ASPARTATE AMINO TRANSFERASE 43 IU/L (15-46); BILIRUBIN,INDIRECT 0.2 mg/dl (0-1.1); BILIRUBIN,TOTAL 0.2 mg/dl (0.2-1.3); BLOOD UREA NITROGEN 109 mg/dl (7-20); CALCIUM 9.1 mg/dl (8.4-10.2); CARBON DIOXIDE 33 mmol/L (21-31); CHLORIDE 97 mmol/L (97-110); CREATININE 2.58 mg/dl (0.44-1.00); GLUCOSE 151 mg/dl (70-220); POTASSIUM 3.5 mmol/L (3.5-5.1); SODIUM 143 mmol/L (135-144); TOTAL PROTEIN 6.4 g/dl (6.1-8.1)
[2017-10-06] MEDS: INSULIN ASPART [NOVOLOG] 3 ML PEN SC ×3 (08:27→17:16)
[2017-10-06] MEDS: PANTOPRAZOLE (EC) 40 MG TAB PO (08:28)
[2017-10-06] MEDS: SEVELAMER 400 MG TAB PO ×3 (08:29→17:21)
[2017-10-06] MEDS: MULTIVITAMINS THERAPEUTIC TAB PO (08:29)
[2017-10-06] MEDS: LACTOBACILLUS RHAMNOSUS CAP PO ×2 (08:29→21:08)
[2017-10-06] MEDS: predniSONE 10 MG TAB PO (08:29)
[2017-10-06] MEDS: PAROXETINE 20 MG TAB PO (08:29)
[2017-10-06] MEDS: CYCLOSPORINE 0.05% OPH DROPERETTE BOTH EYES ×2 (08:30→21:00)
[2017-10-06] MEDS: METOLAZONE 2.5 MG TAB PO (08:30)
[2017-10-06] MEDS: DOCUSATE SODIUM 100 MG CAP PO ×2 (08:30→21:08)
[2017-10-06 08:32] LABS: HEPATITIS B CORE ANTIBODY NEGATIVE (NEGATIVE)
[2017-10-06 08:39] LABS: HEPATITIS B SURFACE ANTIGEN NEGATIVE (NEGATIVE); TRIIODOTHYRONINE 0.71 ng/ml (0.97-1.69)
[2017-10-06] MEDS: SILVER SULFADIAZINE 1% 25 GM CR TOP (08:39)
[2017-10-06] MEDS: HEPARIN 5,000 UNIT/0.5 ML VIAL SC ×2 (08:39→21:13)
[2017-10-06 08:56] LABS: HEPATITIS C VIRAL ANTIBODY NEGATIVE (NEGATIVE)
[2017-10-06 09:05] LABS: PHOSPHORUS 5.1 mg/dl (2.5-4.9)
[2017-10-06 09:53] LABS: MAGNESIUM 1.9 mg/dl (1.7-2.5)
[2017-10-06 09:59] LABS: ANISOCYTOSIS 2+ (0-0); BAND NEUTROPHILS #M 0.1 10^3/ul (0.0-0.6); BAND NEUTROPHILS % (M) 1 % (0-4); GIANT THROMBO% (M) 1 % (0-0); LYMPHOCYTES #M 1.2 10^3/ul (0.8-2.9); LYMPHOCYTES % (M) 8 % (15-51); MICROCYTOSIS 2+ (0-0); MONOCYTE #M 0.1 10^3/ul (0.3-0.9); MONOCYTES % (M) 1 % (0-11); MYELOCYTES #M 0.6 10^3/ul (0.0-0.0); MYELOCYTES % (M) 4 % (0-0); PLATELET ESTIMATE NORMAL; POLYCHROMASIA 3+ (0-0); REACTIVE LYMPHOCYTES #M 0.1 10^3/ul (0.0-0.0); REACTIVE LYMPHOCYTES% (M) 1 % (0-0); SEG NEUT #M 13.4 10^3/ul (1.6-7.5); SEGMENTED NEUTROPHILS (M) % 85 % (39-77); SMUDGE%M 8 % (0-0)
[2017-10-06] MEDS: MONTELUKAST 10 MG TAB PO (21:08)
[2017-10-06] MEDS: Insulin NOVOLOG SS MILD Algorithm (SS with meals and bedtime) SC (21:16)
[2017-10-07] MEDS: CYCLOSPORINE 0.05% OPH DROPERETTE BOTH EYES ×3 (00:19→21:25)
[2017-10-07] MEDS: DILTIAZEM 90 MG TAB PO ×4 (00:19→17:25)
[2017-10-07] MEDS: ACCU-CHEK XX ×5 (01:48→21:15)
[2017-10-07] MEDS: FUROSEMIDE 40 MG INJ IV (05:40)
[2017-10-07 06:11] LABS: ABNORMAL IP MESSAGE 1; HEMATOCRIT 35.7 % (37.0-47.0); HEMOGLOBIN 10.8 g/dl (12.0-16.0); MEAN CORPUSCULAR HEMOGLOBIN 25.6 pg (29.0-33.0); MEAN CORPUSCULAR HGB CONC 30.3 g/dl (32.0-37.0); MEAN CORPUSCULAR VOLUME 84.6 fl (82.0-101.0); MEAN PLATELET VOLUME 11.1 fl (7.4-10.4); NUCLEATED RED BLOOD CELLS% 0.2 /100WBC (0.0-0.0); PLATELET COUNT 184 10^3/UL (140-415); RED BLOOD COUNT 4.22 10^6/ul (4.20-5.40); RED CELL DISTRIBUTION WIDTH 18.2 % (11.5-14.5)
[2017-10-07 06:11] LABS: WHITE BLOOD COUNT 18.8 10^3/ul (4.8-10.8)
[2017-10-07 06:50] LABS: POSITIVE DIFF @See below
[2017-10-07 06:51] LABS: ADD MAN DIFF? YES
[2017-10-07 07:19] LABS: ANION GAP 17 (8-16); BLOOD UREA NITROGEN 116 mg/dl (7-20); CALCIUM 9.1 mg/dl (8.4-10.2); CARBON DIOXIDE 38 mmol/L (21-31); CHLORIDE 93 mmol/L (97-110); CREATININE 2.06 mg/dl (0.44-1.00); GLUCOSE 234 mg/dl (70-220); MAGNESIUM 1.7 mg/dl (1.7-2.5); PHOSPHORUS 4.7 mg/dl (2.5-4.9); POTASSIUM 3.5 mmol/L (3.5-5.1); SODIUM 144 mmol/L (135-144)
[2017-10-07 08:34] LABS: ANISOCYTOSIS 2+ (0-0); ERYTHROBLAST% (NRBC) (M) 1 % (0-0); LYMPHOCYTES #M 0.7 10^3/ul (0.8-2.9); LYMPHOCYTES % (M) 4 % (15-51); MICROCYTOSIS 2+ (0-0); MONOCYTE #M 0.1 10^3/ul (0.3-0.9); MONOCYTES % (M) 1 % (0-11); MYELOCYTES #M 0.5 10^3/ul (0.0-0.0); MYELOCYTES % (M) 3 % (0-0); PLATELET ESTIMATE NORMAL; POIKILOCYTOSIS 1+ (0-0); POLYCHROMASIA 2+ (0-0); SEGMENTED NEUTROPHILS (M) % 92 % (39-77); SMUDGE%M 3 % (0-0)
[2017-10-07] MEDS: SEVELAMER 400 MG TAB PO ×3 (08:37→17:24)
[2017-10-07] MEDS: PANTOPRAZOLE (EC) 40 MG TAB PO (08:38)
[2017-10-07] MEDS: DOCUSATE SODIUM 100 MG CAP PO ×2 (08:38→21:24)
[2017-10-07] MEDS: MULTIVITAMINS THERAPEUTIC TAB PO (08:38)
[2017-10-07] MEDS: predniSONE 10 MG TAB PO (08:38)
[2017-10-07] MEDS: LACTOBACILLUS RHAMNOSUS CAP PO ×2 (08:38→21:25)
[2017-10-07] MEDS: Insulin NOVOLOG SS MILD Algorithm (SS with meals and bedtime) SC ×4 (08:40→21:00)
[2017-10-07] MEDS: HEPARIN 5,000 UNIT/0.5 ML VIAL SC (08:41)
[2017-10-07] MEDS: SILVER SULFADIAZINE 1% 25 GM CR TOP (08:41)
[2017-10-07] MEDS: POTASSIUM CHLORIDE (SR) 10 MEQ TAB PO (08:52)
[2017-10-07] MEDS: HYDROCODONE/APAP (5/325) TAB PO (08:54)
[2017-10-07] MEDS: PAROXETINE 20 MG TAB PO (10:33)
[2017-10-07] MEDS: ACETAZOLAMIDE 500 MG INJ IV (10:33)
[2017-10-07] MEDS: INSULIN ASPART [NOVOLOG] 3 ML PEN SC ×2 (18:30→21:26)
[2017-10-07] MEDS ORDERED: INSULIN GLARGINE [LANtus] 3 ML PEN SC (20:00)
[2017-10-07] MEDS: MONTELUKAST 10 MG TAB PO (21:25)
[2017-10-07] MEDS: INSULIN GLARGINE [LANtus] 3 ML PEN SC (21:27)
[2017-10-08] MEDS: DILTIAZEM 90 MG TAB PO ×3 (00:26→12:22)
[2017-10-08] MEDS: ACCU-CHEK XX ×5 (02:00→21:53)
[2017-10-08] MEDS: MULTIVITAMINS THERAPEUTIC TAB PO (08:04)
[2017-10-08] MEDS: predniSONE 10 MG TAB PO (08:04)
[2017-10-08] MEDS: SEVELAMER 400 MG TAB PO ×3 (08:04→17:23)
[2017-10-08] MEDS: LACTOBACILLUS RHAMNOSUS CAP PO ×2 (08:04→21:38)
[2017-10-08] MEDS: DOCUSATE SODIUM 100 MG CAP PO ×2 (08:04→21:00)
[2017-10-08] MEDS: PANTOPRAZOLE (EC) 40 MG TAB PO (08:04)
[2017-10-08] MEDS: PAROXETINE 20 MG TAB PO (08:04)
[2017-10-08] MEDS: CYCLOSPORINE 0.05% OPH DROPERETTE BOTH EYES ×2 (08:05→21:38)
[2017-10-08] MEDS: Insulin NOVOLOG SS MILD Algorithm (SS with meals and bedtime) SC ×4 (08:17→21:51)
[2017-10-08] MEDS: INSULIN ASPART [NOVOLOG] 3 ML PEN SC ×3 (08:17→17:30)
[2017-10-08 08:28] LABS: ADD MAN DIFF? NO
[2017-10-08 08:32] LABS: BASOPHILS % 0.1 % (0.0-2.0); EOSINOPHILS % 0.1 % (0.0-7.0); HEMATOCRIT 33.5 % (37.0-47.0); HEMOGLOBIN 10.5 g/dl (12.0-16.0); LYMPHOCYTES # 0.7 10^3/ul (0.8-2.9); LYMPHOCYTES % 3.4 % (15.0-51.0); MEAN CORPUSCULAR HEMOGLOBIN 26.2 pg (29.0-33.0); MEAN CORPUSCULAR HGB CONC 31.3 g/dl (32.0-37.0); MEAN CORPUSCULAR VOLUME 83.5 fl (82.0-101.0); MEAN PLATELET VOLUME 11.6 fl (7.4-10.4); MONOCYTE # 0.7 10^3/ul (0.3-0.9); MONOCYTES % 3.5 % (0.0-11.0); NEUTROPHIL # 18.9 10^3/ul (1.6-7.5); NEUTROPHILS % 89.8 % (39.0-77.0); NUCLEATED RED BLOOD CELLS # 0.1 10^3/ul (0.0-0.0); NUCLEATED RED BLOOD CELLS% 0.3 /100WBC (0.0-0.0); PLATELET COUNT 220 10^3/UL (140-415); RED BLOOD COUNT 4.01 10^6/ul (4.20-5.40); RED CELL DISTRIBUTION WIDTH 18.4 % (11.5-14.5)
[2017-10-08] MEDS: ENOXAPARIN 80 MG/0.8 ML SYG SC (08:55)
[2017-10-08] MEDS: SILVER SULFADIAZINE 1% 25 GM CR TOP (08:56)
[2017-10-08 08:58] LABS: ANION GAP 15 (8-16); BLOOD UREA NITROGEN 114 mg/dl (7-20); CALCIUM 9.4 mg/dl (8.4-10.2); CARBON DIOXIDE 38 mmol/L (21-31); CHLORIDE 88 mmol/L (97-110); CREATININE 2.31 mg/dl (0.44-1.00); GLUCOSE 189 mg/dl (70-220); MAGNESIUM 1.6 mg/dl (1.7-2.5); PHOSPHORUS 3.6 mg/dl (2.5-4.9); POTASSIUM 3.2 mmol/L (3.5-5.1); SODIUM 138 mmol/L (135-144)
[2017-10-08] MEDS: ACETAZOLAMIDE 500 MG INJ IV (10:10)
[2017-10-08] MEDS: HYDROCODONE/APAP (5/325) TAB PO ×2 (12:27→21:38)
[2017-10-08] MEDS: MAGNESIUM SULFATE 2 GM/50 ML 50 ML IVPB (14:33)
[2017-10-08] MEDS: POTASSIUM CHLORIDE 20 MEQ POWDER FOR ORAL SOLN PO (14:33)
[2017-10-08] MEDS: DILTIAZEM (CD) 180 MG CAP PO (18:48)
[2017-10-08] MEDS: MONTELUKAST 10 MG TAB PO (21:38)
[2017-10-08] MEDS: METOPROLOL 25 MG TAB PO (21:39)
[2017-10-08] MEDS: HEPARIN 5,000 UNIT/0.5 ML VIAL SC (21:42)
[2017-10-08] MEDS: INSULIN GLARGINE [LANtus] 3 ML PEN SC (21:42)
[2017-10-09] MEDS: ACCU-CHEK XX ×5 (02:56→21:00)
[2017-10-09] MEDS: PANTOPRAZOLE (EC) 40 MG TAB PO (06:41)
[2017-10-09] MEDS: Insulin NOVOLOG SS MILD Algorithm (SS with meals and bedtime) SC ×4 (07:30→21:48)
[2017-10-09 07:42] LABS: ADD MAN DIFF? NO
[2017-10-09 07:48] LABS: BASOPHILS % 0.2 % (0.0-2.0); EOSINOPHILS % 0.1 % (0.0-7.0); HEMATOCRIT 36.9 % (37.0-47.0); HEMOGLOBIN 11.2 g/dl (12.0-16.0); LYMPHOCYTES # 0.6 10^3/ul (0.8-2.9); LYMPHOCYTES % 3.5 % (15.0-51.0); MEAN CORPUSCULAR HEMOGLOBIN 25.8 pg (29.0-33.0); MEAN CORPUSCULAR HGB CONC 30.4 g/dl (32.0-37.0); MONOCYTE # 0.7 10^3/ul (0.3-0.9); MONOCYTES % 4.1 % (0.0-11.0); NEUTROPHIL # 15.8 10^3/ul (1.6-7.5); NUCLEATED RED BLOOD CELLS% 0.1 /100WBC (0.0-0.0); PLATELET COUNT 242 10^3/UL (140-415); RED BLOOD COUNT 4.34 10^6/ul (4.20-5.40); RED CELL DISTRIBUTION WIDTH 17.8 % (11.5-14.5)
[2017-10-09 07:48] LABS: WHITE BLOOD COUNT 17.5 10^3/ul (4.8-10.8)
[2017-10-09 08:11] LABS: ANION GAP 13 (8-16); BLOOD UREA NITROGEN 105 mg/dl (7-20); CALCIUM 9.5 mg/dl (8.4-10.2); CARBON DIOXIDE 40 mmol/L (21-31); CHLORIDE 93 mmol/L (97-110); CREATININE 2.12 mg/dl (0.44-1.00); GLUCOSE 95 mg/dl (70-220); MAGNESIUM 2.1 mg/dl (1.7-2.5); PHOSPHORUS 4.7 mg/dl (2.5-4.9); POTASSIUM 3.2 mmol/L (3.5-5.1); SODIUM 143 mmol/L (135-144)
[2017-10-09] MEDS: INSULIN ASPART [NOVOLOG] 3 ML PEN SC ×3 (08:24→17:23)
[2017-10-09] MEDS: LACTOBACILLUS RHAMNOSUS CAP PO ×2 (08:24→21:44)
[2017-10-09] MEDS: SEVELAMER 400 MG TAB PO ×3 (08:25→17:21)
[2017-10-09] MEDS: predniSONE 10 MG TAB PO (08:25)
[2017-10-09] MEDS: PAROXETINE 20 MG TAB PO (08:25)
[2017-10-09] MEDS: MULTIVITAMINS THERAPEUTIC TAB PO (08:25)
[2017-10-09] MEDS: METOPROLOL 25 MG TAB PO ×2 (08:26→21:44)
[2017-10-09] MEDS: SILVER SULFADIAZINE 1% 25 GM CR TOP (08:27)
[2017-10-09] MEDS: CYCLOSPORINE 0.05% OPH DROPERETTE BOTH EYES ×2 (08:27→21:44)
[2017-10-09] MEDS: DILTIAZEM (CD) 180 MG CAP PO (08:27)
[2017-10-09] MEDS: HEPARIN 5,000 UNIT/0.5 ML VIAL SC ×2 (08:27→21:47)
[2017-10-09] MEDS: DOCUSATE SODIUM 100 MG CAP PO ×2 (08:28→21:44)
[2017-10-09] MEDS: POTASSIUM CHLORIDE (SR) 20 MEQ TAB PO (09:17)
[2017-10-09] MEDS: MONTELUKAST 10 MG TAB PO (21:43)
[2017-10-09] MEDS: INSULIN GLARGINE [LANtus] 3 ML PEN SC (21:49)
[2017-10-10] MEDS: ACCU-CHEK XX ×5 (02:00→21:00)
[2017-10-10] MEDS: HYDROCODONE/APAP (5/325) TAB PO (03:43)
[2017-10-10] MEDS: PANTOPRAZOLE (EC) 40 MG TAB PO (05:26)
[2017-10-10] MEDS: Insulin NOVOLOG SS MILD Algorithm (SS with meals and bedtime) SC ×4 (07:30→21:19)
[2017-10-10] MEDS: predniSONE 10 MG TAB PO (08:42)
[2017-10-10] MEDS: SEVELAMER 400 MG TAB PO ×3 (08:42→17:50)
[2017-10-10] MEDS: MULTIVITAMINS THERAPEUTIC TAB PO (08:42)
[2017-10-10] MEDS: DOCUSATE SODIUM 100 MG CAP PO ×2 (08:43→21:12)
[2017-10-10] MEDS: LACTOBACILLUS RHAMNOSUS CAP PO ×2 (08:43→21:12)
[2017-10-10] MEDS: PAROXETINE 20 MG TAB PO (08:43)
[2017-10-10] MEDS: METOPROLOL 25 MG TAB PO ×2 (08:44→21:12)
[2017-10-10] MEDS: DILTIAZEM (CD) 180 MG CAP PO (08:44)
[2017-10-10] MEDS: SILVER SULFADIAZINE 1% 25 GM CR TOP (08:46)
[2017-10-10] MEDS: CYCLOSPORINE 0.05% OPH DROPERETTE BOTH EYES ×2 (09:00→21:00)
[2017-10-10] MEDS: INFLUENZA VIRUS VACCINE 0.5 ML (DISPENSING) IM* (09:00)
[2017-10-10] MEDS: INSULIN ASPART [NOVOLOG] 3 ML PEN SC ×3 (09:00→17:52)
[2017-10-10] MEDS: HEPARIN 5,000 UNIT/0.5 ML VIAL SC ×2 (09:01→21:14)
[2017-10-10 09:51] LABS: ADD MAN DIFF? NO
[2017-10-10 09:59] LABS: WHITE BLOOD COUNT 17.2 10^3/ul (4.8-10.8)
[2017-10-10 09:59] LABS: BASOPHILS % 0.2 % (0.0-2.0); EOSINOPHILS % 0.1 % (0.0-7.0); HEMATOCRIT 38.5 % (37.0-47.0); HEMOGLOBIN 11.4 g/dl (12.0-16.0); LYMPHOCYTES # 0.7 10^3/ul (0.8-2.9); LYMPHOCYTES % 4.1 % (15.0-51.0); MEAN CORPUSCULAR HEMOGLOBIN 25.7 pg (29.0-33.0); MEAN CORPUSCULAR HGB CONC 29.6 g/dl (32.0-37.0); MEAN CORPUSCULAR VOLUME 86.9 fl (82.0-101.0); MEAN PLATELET VOLUME 11.2 fl (7.4-10.4); MONOCYTE # 0.9 10^3/ul (0.3-0.9); MONOCYTES % 5.4 % (0.0-11.0); NEUTROPHIL # 15.2 10^3/ul (1.6-7.5); NEUTROPHILS % 88.3 % (39.0-77.0); NUCLEATED RED BLOOD CELLS% 0.1 /100WBC (0.0-0.0); PLATELET COUNT 291 10^3/UL (140-415); RED BLOOD COUNT 4.43 10^6/ul (4.20-5.40); RED CELL DISTRIBUTION WIDTH 17.8 % (11.5-14.5)
[2017-10-10 10:15] LABS: ANION GAP 14 (8-16); BLOOD UREA NITROGEN 93 mg/dl (7-20); CALCIUM 9.6 mg/dl (8.4-10.2); CARBON DIOXIDE 36 mmol/L (21-31); CHLORIDE 97 mmol/L (97-110); CREATININE 1.66 mg/dl (0.44-1.00); GLUCOSE 196 mg/dl (70-220); MAGNESIUM 1.9 mg/dl (1.7-2.5); PHOSPHORUS 4.2 mg/dl (2.5-4.9); POTASSIUM 4.5 mmol/L (3.5-5.1); SODIUM 142 mmol/L (135-144)
[2017-10-10] MEDS: QUETIAPINE 25 MG TAB PO (21:12)
[2017-10-10] MEDS: MONTELUKAST 10 MG TAB PO (21:12)
[2017-10-10] MEDS: INSULIN GLARGINE [LANtus] 3 ML PEN SC (21:17)
[2017-10-11] MEDS: CYCLOSPORINE 0.05% OPH DROPERETTE BOTH EYES (00:14)
[2017-10-11] MEDS: ACCU-CHEK XX ×4 (02:00→17:30)
[2017-10-11] MEDS: HYDROCODONE/APAP (5/325) TAB PO (04:28)
[2017-10-11] MEDS: PANTOPRAZOLE (EC) 40 MG TAB PO (07:30)
[2017-10-11] MEDS: Insulin NOVOLOG SS MILD Algorithm (SS with meals and bedtime) SC ×3 (07:30→17:29)
[2017-10-11] MEDS: PAROXETINE 20 MG TAB PO (08:29)
[2017-10-11] MEDS: MULTIVITAMINS THERAPEUTIC TAB PO (08:30)
[2017-10-11] MEDS: predniSONE 20 MG TAB PO (08:30)
[2017-10-11] MEDS: QUETIAPINE 25 MG TAB PO (08:31)
[2017-10-11] MEDS: LACTOBACILLUS RHAMNOSUS CAP PO (08:31)
[2017-10-11] MEDS: DOCUSATE SODIUM 100 MG CAP PO (08:31)
[2017-10-11] MEDS: DILTIAZEM (CD) 180 MG CAP PO (08:32)
[2017-10-11] MEDS: METOPROLOL 25 MG TAB PO (08:33)
[2017-10-11] MEDS: SEVELAMER 400 MG TAB PO ×3 (08:33→17:30)
[2017-10-11] MEDS: INSULIN ASPART [NOVOLOG] 3 ML PEN SC ×3 (08:48→17:29)
[2017-10-11 08:49] LABS: ADD MAN DIFF? NO
[2017-10-11] MEDS: HEPARIN 5,000 UNIT/0.5 ML VIAL SC (08:49)
[2017-10-11 08:52] LABS: WHITE BLOOD COUNT 17.9 10^3/ul (4.8-10.8)
[2017-10-11 08:52] LABS: BASOPHILS % 0.1 % (0.0-2.0); EOSINOPHILS % 0.2 % (0.0-7.0); HEMATOCRIT 36.5 % (37.0-47.0); HEMOGLOBIN 10.9 g/dl (12.0-16.0); LYMPHOCYTES # 0.7 10^3/ul (0.8-2.9); LYMPHOCYTES % 4.1 % (15.0-51.0); MEAN CORPUSCULAR HEMOGLOBIN 25.6 pg (29.0-33.0); MEAN CORPUSCULAR HGB CONC 29.9 g/dl (32.0-37.0); MEAN CORPUSCULAR VOLUME 85.9 fl (82.0-101.0); MEAN PLATELET VOLUME 11.3 fl (7.4-10.4); MONOCYTE # 1.3 10^3/ul (0.3-0.9); NEUTROPHIL # 15.6 10^3/ul (1.6-7.5); NEUTROPHILS % 86.9 % (39.0-77.0); PLATELET COUNT 328 10^3/UL (140-415); RED BLOOD COUNT 4.25 10^6/ul (4.20-5.40); RED CELL DISTRIBUTION WIDTH 17.7 % (11.5-14.5)
[2017-10-11] MEDS: SILVER SULFADIAZINE 1% 25 GM CR TOP (09:00)
[2017-10-11 09:24] LABS: ANION GAP 11 (8-16); BLOOD UREA NITROGEN 87 mg/dl (7-20); CALCIUM 9.5 mg/dl (8.4-10.2); CARBON DIOXIDE 38 mmol/L (21-31); CHLORIDE 99 mmol/L (97-110); CREATININE 1.51 mg/dl (0.44-1.00); GLUCOSE 97 mg/dl (70-220); MAGNESIUM 1.8 mg/dl (1.7-2.5); PHOSPHORUS 3.8 mg/dl (2.5-4.9); POTASSIUM 3.8 mmol/L (3.5-5.1); SODIUM 144 mmol/L (135-144)
== END 2017-10-11 19:51 | DRG 871 ==
LOC: MS4 10-02 17:24 → E/R 12:15 → ICU 14:19 → MS4 13:45
PROC: 5A09557 Assistance with Respiratory Ventilation, Greater than 96 Consecutive Hours, Continuous Positive Airway Pressure (ICD-10-PCS; 2017-09-28)
PROC: 0X9K3ZZ Drainage of Left Hand, Percutaneous Approach (ICD-10-PCS; principal; 2017-10-02)
DX: A41.9 Sepsis, unspecified organism (principal); R65.21 Severe sepsis with septic shock; J96.01 Acute respiratory failure with hypoxia; I50.33 Acute on chronic diastolic (congestive) heart failure; G92 Toxic encephalopathy; J18.9 Pneumonia, unspecified organism; E87.2 Acidosis; I27.20 Pulmonary hypertension, unspecified; E83.9 Disorder of mineral metabolism, unspecified; J44.0 Chronic obstructive pulmonary disease with (acute) lower respiratory infection; J44.9 Chronic obstructive pulmonary disease, unspecified; I13.0 Hypertensive heart and chronic kidney disease with heart failure and stage 1 through stage 4 chronic kidney disease, or unspecified chronic kidney disease; N39.0 Urinary tract infection, site not specified; J44.1 Chronic obstructive pulmonary disease with (acute) exacerbation; F32.9 Major depressive disorder, single episode, unspecified; Y95 Nosocomial condition; D64.9 Anemia, unspecified; F41.9 Anxiety disorder, unspecified; E87.5 Hyperkalemia; E11.65 Type 2 diabetes mellitus with hyperglycemia; E11.22 Type 2 diabetes mellitus with diabetic chronic kidney disease; I48.2 Chronic atrial fibrillation; E05.90 Thyrotoxicosis, unspecified without thyrotoxic crisis or storm; R60.1 Generalized edema; M79.89 Other specified soft tissue disorders; S50.822A Blister (nonthermal) of left forearm, initial encounter; X58.XXXA Exposure to other specified factors, initial encounter; N18.9 Chronic kidney disease, unspecified; B95.5 Unspecified streptococcus as the cause of diseases classified elsewhere; K58.8 Other irritable bowel syndrome; Z86.59 Personal history of other mental and behavioral disorders; Z79.4 Long term (current) use of insulin; Z87.891 Personal history of nicotine dependence
CPT/HCPCS: 36415; 36600; 71045; 73030; 73090; 73630-LT; 76536; 76775; 80048; 80053; 80061; 80069; 80202; 81001; 81003; 82043; 82306; 82550; 82553; 82803; 82962; 83036; 83605; 83735; 83880; 84100; 84132; 84155; 84300; 84439; 84443; 84480; 84484; 85025; 85610; 85730; 86704; 86709; 86803; 87040; 87081; 87340; 87400; 90935; 93005; 93306; 93970; 94640; 94644; 94660; 94664; 96372; 96374; 96375; 96376; 97110; 97162; 97530; 99291-25; J1120

== ENCOUNTER 2017-12-01 12:13 | Inpatient (IN) | payer MEDICARE, OTHER ==
[2017-12-01] MEDS: CEFEPIME 1GM/50 ML (PMX) 50 ML IVPB (13:00)
[2017-12-01] MEDS: METHYLPREDNISOLONE 125 MG INJ IV (13:00)
[2017-12-01 13:18] LABS: ADD MAN DIFF? NO
[2017-12-01 13:22] LABS: ABNORMAL IP MESSAGE 1; BASOPHILS % 0.1 % (0.0-2.0); EOSINOPHILS % 0.1 % (0.0-7.0); HEMATOCRIT 28.4 % (37.0-47.0); HEMOGLOBIN 8.6 g/dl (12.0-16.0); LYMPHOCYTES # 0.3 10^3/ul (0.8-2.9); LYMPHOCYTES % 1.9 % (15.0-51.0); MEAN CORPUSCULAR HEMOGLOBIN 27.5 pg (29.0-33.0); MEAN CORPUSCULAR HGB CONC 30.3 g/dl (32.0-37.0); MEAN CORPUSCULAR VOLUME 90.7 fl (82.0-101.0); MEAN PLATELET VOLUME 10.5 fl (7.4-10.4); MONOCYTE # 0.7 10^3/ul (0.3-0.9); MONOCYTES % 4.6 % (0.0-11.0); NEUTROPHIL # 13.4 10^3/ul (1.6-7.5); NEUTROPHILS % 92.8 % (39.0-77.0); NUCLEATED RED BLOOD CELLS% 0.1 /100WBC (0.0-0.0); PLATELET COUNT 358 10^3/UL (140-415); RED BLOOD COUNT 3.13 10^6/ul (4.20-5.40); RED CELL DISTRIBUTION WIDTH 19.8 % (11.5-14.5)
[2017-12-01 13:22] LABS: WHITE BLOOD COUNT 14.5 10^3/ul (4.8-10.8)
[2017-12-01 13:24] LABS: POSITIVE DIFF @See below
[2017-12-01] MEDS: FUROSEMIDE 40 MG INJ IV (13:33)
[2017-12-01 13:38] LABS: ALANINE AMINOTRANSFERASE 34 IU/L (13-69); ALBUMIN 3.6 g/dl (3.3-4.9); ALKALINE PHOSPHATASE 178 IU/L (42-121); ANION GAP 19 (8-16); ASPARTATE AMINO TRANSFERASE 14 IU/L (15-46); BILIRUBIN,INDIRECT 0.1 mg/dl (0-1.1); BILIRUBIN,TOTAL 0.1 mg/dl (0.2-1.3); BLOOD UREA NITROGEN 37 mg/dl (7-20); CALCIUM 6.8 mg/dl (8.4-10.2); CARBON DIOXIDE 26 mmol/L (21-31); CHLORIDE 107 mmol/L (97-110); CREATININE 1.32 mg/dl (0.44-1.00); GLUCOSE 148 mg/dl (70-220); SODIUM 148 mmol/L (135-144); TOTAL PROTEIN 6.6 g/dl (6.1-8.1)
[2017-12-01 13:50] LABS: B-TYPE NATRIURETIC PEPTIDE 8790 PG/ML (0-450)
[2017-12-01 13:51] LABS: TROPONIN-I < 0.012 ng/ml (0.00-0.12)
[2017-12-01] MEDS: VANCOMYCIN 1 GM (PMX) 250 ML IVPB (14:05)
[2017-12-01] MEDS: LEVALBUTEROL (NEB) 1.25 MG/0.5 ML AMP INH (14:12)
[2017-12-01] MEDS ORDERED: ONDANSETRON 4 MG INJ IV ×2 (15:00→19:30)
[2017-12-01] MEDS ORDERED: ACETAMINOPHEN 325 MG TAB PO ×2 (15:00→19:30)
[2017-12-01] MEDS: DILTIAZEM-D5W 125MG/125ML DRIP 125 ML IV ×2 (15:16→22:51)
[2017-12-01] MEDS: DILTIAZEM 25 MG INJ IV (15:27)
[2017-12-01] MEDS ORDERED: HYPROMELLOSE 0.5% 15 ML OPH BOTH EYES (19:30)
[2017-12-01] MEDS ORDERED: NACL 0.9% 3 ML SYG IV (19:30)
[2017-12-01] MEDS ORDERED: NON-FORMULARY/PATIENT OWN MED (Arginine/Ascorbate Sod/Vite AC (Arginaid Powder) 1 EACH) PO (21:00)
[2017-12-01] MEDS: QUETIAPINE 25 MG TAB PO (21:05)
[2017-12-01] MEDS: BUMETANIDE 1 MG TAB PO (21:05)
[2017-12-01] MEDS: LEVETIRACETAM 500 MG TAB PO (21:06)
[2017-12-01] MEDS: MAGNESIUM OXIDE 400 MG TAB PO (21:06)
[2017-12-01] MEDS: MONTELUKAST 10 MG TAB PO (21:06)
[2017-12-01] MEDS: SACCHAROMYCES BOULARDII 250 MG CAP PO (21:06)
[2017-12-01] MEDS: DOCUSATE SODIUM 100 MG CAP PO (21:06)
[2017-12-01] MEDS: ASCORBIC ACID 500 MG TAB PO (21:07)
[2017-12-01] MEDS: METOPROLOL 50 MG TAB PO (21:08)
[2017-12-01] MEDS: HEPARIN 5,000 UNIT/0.5 ML VIAL SC (21:10)
[2017-12-01] MEDS: HYDROCODONE/APAP (5/325) TAB PO (23:45)
[2017-12-01] MEDS: LORAZEPAM 0.5 MG TAB PO (23:45)
[2017-12-02] MEDS: IPRATROPIUM (NEB) 0.5 MG/2.5 ML AMP HHN (02:07)
[2017-12-02] MEDS: LEVALBUTEROL (NEB) 0.63 MG/3 ML AMP HHN ×3 (02:07→20:25)
[2017-12-02] MEDS: BUMETANIDE 1 MG TAB PO (05:41)
[2017-12-02] MEDS: HYDROCODONE/APAP (5/325) TAB PO ×3 (06:07→20:37)
[2017-12-02 06:58] LABS: ADD MAN DIFF? NO
[2017-12-02 07:04] LABS: ABNORMAL IP MESSAGE 1; BASOPHILS % 0.1 % (0.0-2.0); HEMATOCRIT 25.9 % (37.0-47.0); HEMOGLOBIN 7.9 g/dl (12.0-16.0); LYMPHOCYTES # 0.3 10^3/ul (0.8-2.9); LYMPHOCYTES % 2.4 % (15.0-51.0); MEAN CORPUSCULAR HEMOGLOBIN 27.4 pg (29.0-33.0); MEAN CORPUSCULAR HGB CONC 30.5 g/dl (32.0-37.0); MEAN CORPUSCULAR VOLUME 89.9 fl (82.0-101.0); MEAN PLATELET VOLUME 10.4 fl (7.4-10.4); MONOCYTE # 0.4 10^3/ul (0.3-0.9); NEUTROPHIL # 13.1 10^3/ul (1.6-7.5); NEUTROPHILS % 93.5 % (39.0-77.0); NUCLEATED RED BLOOD CELLS # 0.1 10^3/ul (0.0-0.0); NUCLEATED RED BLOOD CELLS% 0.4 /100WBC (0.0-0.0); PLATELET COUNT 394 10^3/UL (140-415); RED BLOOD COUNT 2.88 10^6/ul (4.20-5.40); RED CELL DISTRIBUTION WIDTH 19.6 % (11.5-14.5)
[2017-12-02 07:08] LABS: POSITIVE DIFF @See below
[2017-12-02 07:27] LABS: IRON 20 ug/dl (35-150)
[2017-12-02 07:30] LABS: ANION GAP 18 (8-16); BLOOD UREA NITROGEN 37 mg/dl (7-20); CALCIUM 6.6 mg/dl (8.4-10.2); CARBON DIOXIDE 27 mmol/L (21-31); CHLORIDE 107 mmol/L (97-110); CHOL/HDL RATIO 4.3 RATIO; CHOLESTEROL 138 mg/dl (100-200); CREATININE 1.14 mg/dl (0.44-1.00); GLUCOSE 142 mg/dl (70-220); HDL CHOLESTEROL 32 mg/dl (33-92); LDL CHOLESTEROL,CALCULATED 82 mg/dl; MAGNESIUM 1.4 mg/dl (1.7-2.5); PHOSPHORUS 3.7 mg/dl (2.5-4.9); SODIUM 148 mmol/L (135-144); TRIGLYCERIDES 121 mg/dl (0-149)
[2017-12-02 07:36] LABS: % IRON SATURATION 8 % SAT (22-52); TOTAL IRON BINDING CAPACITY 252 ug/dl (241-421)
[2017-12-02 07:44] LABS: FREE THYROXINE INDEX (Calc) 2.29 ug/ml (0.65-3.89)
[2017-12-02 07:46] LABS: T3 UPTAKE 48.8 % (23.5-40.5); T4 (THYROXINE) 4.7 ug/dl (5.5-11.0)
[2017-12-02 07:56] LABS: HEMOGLOBIN A1C 5.5 % (0-5.9)
[2017-12-02] MEDS: SEVELAMER 400 MG TAB PO ×3 (09:19→18:04)
[2017-12-02] MEDS: ZINC SULFATE 220 MG CAP PO (09:19)
[2017-12-02] MEDS: MAGNESIUM OXIDE 400 MG TAB PO ×2 (09:19→20:37)
[2017-12-02] MEDS: QUETIAPINE 25 MG TAB PO ×2 (09:19→20:36)
[2017-12-02] MEDS: ASPIRIN 81 MG TAB PO (09:19)
[2017-12-02] MEDS: predniSONE 10 MG TAB PO (09:20)
[2017-12-02] MEDS: DOCUSATE SODIUM 100 MG CAP PO ×2 (09:20→20:35)
[2017-12-02] MEDS: PAROXETINE 20 MG TAB PO (09:20)
[2017-12-02] MEDS: ASCORBIC ACID 500 MG TAB PO ×2 (09:20→20:36)
[2017-12-02] MEDS: METOPROLOL 50 MG TAB PO ×2 (09:21→20:46)
[2017-12-02] MEDS: LEVETIRACETAM 500 MG TAB PO ×2 (09:21→20:35)
[2017-12-02] MEDS: DILTIAZEM (SR) 90 MG CAP PO (09:22)
[2017-12-02] MEDS: PANTOPRAZOLE (EC) 40 MG TAB PO (09:27)
[2017-12-02] MEDS: HEPARIN 5,000 UNIT/0.5 ML VIAL SC ×2 (09:27→20:41)
[2017-12-02] MEDS: SACCHAROMYCES BOULARDII 250 MG CAP PO ×2 (09:30→20:37)
[2017-12-02] MEDS: DILTIAZEM-D5W 125MG/125ML DRIP 125 ML IV ×2 (09:35→12:59)
[2017-12-02] MEDS: MAGNESIUM SULFATE 4 GM/100 ML 100 ML IVPB (11:28)
[2017-12-02] MEDS: LORAZEPAM 0.5 MG TAB PO ×2 (11:40→20:36)
[2017-12-02] MEDS: MESALAMINE (EC) 400 MG CAP PO ×3 (13:06→20:36)
[2017-12-02] MEDS: DILTIAZEM 60 MG TAB PO ×2 (13:27→18:08)
[2017-12-02] MEDS: BUMETANIDE 1 MG INJ IV (15:51)
[2017-12-02] MEDS: MONTELUKAST 10 MG TAB PO (20:36)
[2017-12-03] MEDS: DILTIAZEM 60 MG TAB PO ×4 (01:19→17:29)
[2017-12-03] MEDS: LEVALBUTEROL (NEB) 0.63 MG/3 ML AMP HHN ×4 (01:50→19:57)
[2017-12-03] MEDS: LORAZEPAM 0.5 MG TAB PO ×5 (05:09→22:12)
[2017-12-03] MEDS: HYDROCODONE/APAP (5/325) TAB PO ×3 (05:09→21:47)
[2017-12-03] MEDS: BUMETANIDE 1 MG TAB PO ×2 (05:09→17:28)
[2017-12-03] MEDS: PANTOPRAZOLE (EC) 40 MG TAB PO (05:10)
[2017-12-03 08:45] LABS: ADD MAN DIFF? NO
[2017-12-03 08:51] LABS: WHITE BLOOD COUNT 14.7 10^3/ul (4.8-10.8)
[2017-12-03 08:51] LABS: BASOPHILS % 0.1 % (0.0-2.0); EOSINOPHILS % 0.1 % (0.0-7.0); HEMATOCRIT 26.3 % (37.0-47.0); HEMOGLOBIN 7.8 g/dl (12.0-16.0); LYMPHOCYTES % 6.7 % (15.0-51.0); MEAN CORPUSCULAR HGB CONC 29.7 g/dl (32.0-37.0); MEAN PLATELET VOLUME 10.3 fl (7.4-10.4); MONOCYTE # 0.8 10^3/ul (0.3-0.9); MONOCYTES % 5.2 % (0.0-11.0); NEUTROPHIL # 12.6 10^3/ul (1.6-7.5); NEUTROPHILS % 86.1 % (39.0-77.0); NUCLEATED RED BLOOD CELLS # 0.2 10^3/ul (0.0-0.0); NUCLEATED RED BLOOD CELLS% 1.1 /100WBC (0.0-0.0); PLATELET COUNT 391 10^3/UL (140-415); RED BLOOD COUNT 2.89 10^6/ul (4.20-5.40); RED CELL DISTRIBUTION WIDTH 19.6 % (11.5-14.5)
[2017-12-03] MEDS: SACCHAROMYCES BOULARDII 250 MG CAP PO ×2 (08:54→21:50)
[2017-12-03] MEDS: SEVELAMER 400 MG TAB PO ×3 (08:54→17:28)
[2017-12-03] MEDS: MAGNESIUM OXIDE 400 MG TAB PO ×2 (08:55→21:35)
[2017-12-03] MEDS: MESALAMINE (EC) 400 MG CAP PO ×4 (08:55→21:47)
[2017-12-03] MEDS: ASPIRIN 81 MG TAB PO (08:55)
[2017-12-03] MEDS: ASCORBIC ACID 500 MG TAB PO ×2 (08:56→21:35)
[2017-12-03] MEDS: QUETIAPINE 25 MG TAB PO ×2 (08:56→21:35)
[2017-12-03] MEDS: LEVETIRACETAM 500 MG TAB PO ×2 (08:56→21:35)
[2017-12-03] MEDS: ZINC SULFATE 220 MG CAP PO (08:56)
[2017-12-03] MEDS: DOCUSATE SODIUM 100 MG CAP PO ×2 (08:56→21:00)
[2017-12-03] MEDS: predniSONE 10 MG TAB PO (08:56)
[2017-12-03] MEDS: METOPROLOL 50 MG TAB PO ×2 (08:57→21:36)
[2017-12-03] MEDS: PAROXETINE 20 MG TAB PO (09:00)
[2017-12-03] MEDS: HEPARIN 5,000 UNIT/0.5 ML VIAL SC ×2 (09:14→21:40)
[2017-12-03 09:21] LABS: ANION GAP 20 (8-16); BLOOD UREA NITROGEN 49 mg/dl (7-20); CALCIUM 6.7 mg/dl (8.4-10.2); CARBON DIOXIDE 25 mmol/L (21-31); CHLORIDE 105 mmol/L (97-110); GLUCOSE 120 mg/dl (70-220); MAGNESIUM 2.8 mg/dl (1.7-2.5); POTASSIUM 3.8 mmol/L (3.5-5.1); SODIUM 146 mmol/L (135-144)
[2017-12-03] MEDS: GUAIFENESIN 20 MG/ML 5ML CUP PO (09:31)
[2017-12-03] MEDS: SOD FERRIC GLUC COMPLX 125 MG in SOD CHLORIDE 0.9% 100 ML IVPB (17:10)
[2017-12-03] MEDS: MONTELUKAST 10 MG TAB PO (21:46)
[2017-12-04] MEDS: LEVALBUTEROL (NEB) 0.63 MG/3 ML AMP HHN ×4 (01:33→19:57)
[2017-12-04] MEDS: HYDROCODONE/APAP (5/325) TAB PO ×3 (05:10→20:09)
[2017-12-04] MEDS: LORAZEPAM 0.5 MG TAB PO ×3 (05:10→19:01)
[2017-12-04] MEDS: BUMETANIDE 1 MG TAB PO ×2 (05:10→18:18)
[2017-12-04] MEDS: DILTIAZEM 60 MG TAB PO ×3 (05:10→12:39)
[2017-12-04] MEDS: PANTOPRAZOLE (EC) 40 MG TAB PO (05:10)
[2017-12-04 08:29] LABS: ADD MAN DIFF? NO
[2017-12-04 08:31] LABS: WHITE BLOOD COUNT 12.8 10^3/ul (4.8-10.8)
[2017-12-04 08:31] LABS: BASOPHILS % 0.2 % (0.0-2.0); EOSINOPHILS # 0.1 10^3/ul (0.0-0.5); EOSINOPHILS % 0.5 % (0.0-7.0); HEMATOCRIT 29.2 % (37.0-47.0); HEMOGLOBIN 8.6 g/dl (12.0-16.0); LYMPHOCYTES # 1.1 10^3/ul (0.8-2.9); LYMPHOCYTES % 8.4 % (15.0-51.0); MEAN CORPUSCULAR HEMOGLOBIN 26.9 pg (29.0-33.0); MEAN CORPUSCULAR HGB CONC 29.5 g/dl (32.0-37.0); MEAN CORPUSCULAR VOLUME 91.3 fl (82.0-101.0); MEAN PLATELET VOLUME 10.1 fl (7.4-10.4); MONOCYTE # 0.7 10^3/ul (0.3-0.9); MONOCYTES % 5.2 % (0.0-11.0); NEUTROPHIL # 10.4 10^3/ul (1.6-7.5); NEUTROPHILS % 80.9 % (39.0-77.0); NUCLEATED RED BLOOD CELLS # 0.1 10^3/ul (0.0-0.0); NUCLEATED RED BLOOD CELLS% 1.1 /100WBC (0.0-0.0); PLATELET COUNT 391 10^3/UL (140-415)
[2017-12-04 09:05] LABS: ANION GAP 18 (8-16); BLOOD UREA NITROGEN 45 mg/dl (7-20); CALCIUM 6.9 mg/dl (8.4-10.2); CARBON DIOXIDE 29 mmol/L (21-31); CHLORIDE 106 mmol/L (97-110); CREATININE 1.43 mg/dl (0.44-1.00); GLUCOSE 92 mg/dl (70-220); MAGNESIUM 2.4 mg/dl (1.7-2.5); PHOSPHORUS 3.6 mg/dl (2.5-4.9); POTASSIUM 3.6 mmol/L (3.5-5.1); SODIUM 149 mmol/L (135-144)
[2017-12-04] MEDS: SACCHAROMYCES BOULARDII 250 MG CAP PO ×2 (09:41→20:09)
[2017-12-04] MEDS: METOPROLOL 50 MG TAB PO ×2 (09:41→20:08)
[2017-12-04] MEDS: DOCUSATE SODIUM 100 MG CAP PO ×2 (09:42→21:00)
[2017-12-04] MEDS: MESALAMINE (EC) 400 MG CAP PO ×4 (09:42→20:09)
[2017-12-04] MEDS: SEVELAMER 400 MG TAB PO ×3 (09:42→17:50)
[2017-12-04] MEDS: ASPIRIN 81 MG TAB PO (09:42)
[2017-12-04] MEDS: ASCORBIC ACID 500 MG TAB PO ×2 (09:42→20:09)
[2017-12-04] MEDS: PAROXETINE 20 MG TAB PO (09:42)
[2017-12-04] MEDS: LEVETIRACETAM 500 MG TAB PO ×2 (09:43→20:08)
[2017-12-04] MEDS: predniSONE 10 MG TAB PO (09:44)
[2017-12-04] MEDS: MAGNESIUM OXIDE 400 MG TAB PO ×2 (09:44→20:10)
[2017-12-04] MEDS: QUETIAPINE 25 MG TAB PO ×2 (09:44→20:08)
[2017-12-04] MEDS: HEPARIN 5,000 UNIT/0.5 ML VIAL SC ×2 (09:46→20:12)
[2017-12-04] MEDS: ZINC SULFATE 220 MG CAP PO (09:48)
[2017-12-04] MEDS: morphine 2 MG INJ IV (16:28)
[2017-12-04] MEDS: SOD FERRIC GLUC COMPLX 125 MG in SOD CHLORIDE 0.9% 100 ML IVPB (17:50)
[2017-12-04] MEDS: MONTELUKAST 10 MG TAB PO (20:09)
[2017-12-04] MEDS: DILTIAZEM (CD) 180 MG CAP PO (23:25)
[2017-12-04] MEDS: ZOLPIDEM 5 MG TAB PO (23:27)
[2017-12-05] MEDS: LEVALBUTEROL (NEB) 0.63 MG/3 ML AMP HHN ×4 (01:05→20:21)
[2017-12-05] MEDS: HYDROCODONE/APAP (5/325) TAB PO ×3 (01:59→18:16)
[2017-12-05] MEDS: LORAZEPAM 0.5 MG TAB PO ×2 (01:59→08:44)
[2017-12-05] MEDS: PANTOPRAZOLE (EC) 40 MG TAB PO (05:48)
[2017-12-05] MEDS: BUMETANIDE 1 MG TAB PO ×3 (05:48→17:20)
[2017-12-05 08:30] LABS: ABNORMAL IP MESSAGE 1; HEMATOCRIT 29.7 % (37.0-47.0); HEMOGLOBIN 8.8 g/dl (12.0-16.0); MEAN CORPUSCULAR HGB CONC 29.6 g/dl (32.0-37.0); MEAN CORPUSCULAR VOLUME 91.1 fl (82.0-101.0); MEAN PLATELET VOLUME 10.3 fl (7.4-10.4); PLATELET COUNT 419 10^3/UL (140-415); RED BLOOD COUNT 3.26 10^6/ul (4.20-5.40); RED CELL DISTRIBUTION WIDTH 19.3 % (11.5-14.5)
[2017-12-05 08:30] LABS: WHITE BLOOD COUNT 15.6 10^3/ul (4.8-10.8)
[2017-12-05 08:31] LABS: ADD MAN DIFF? YES; POSITIVE DIFF @See below
[2017-12-05] MEDS: predniSONE 10 MG TAB PO (08:44)
[2017-12-05] MEDS: ASCORBIC ACID 500 MG TAB PO ×2 (08:44→21:18)
[2017-12-05] MEDS: QUETIAPINE 25 MG TAB PO ×2 (08:44→21:18)
[2017-12-05] MEDS: MAGNESIUM OXIDE 400 MG TAB PO ×2 (08:44→21:19)
[2017-12-05] MEDS: SEVELAMER 400 MG TAB PO ×3 (08:44→17:20)
[2017-12-05] MEDS: SACCHAROMYCES BOULARDII 250 MG CAP PO ×2 (08:44→21:18)
[2017-12-05] MEDS: DOCUSATE SODIUM 100 MG CAP PO ×2 (08:44→21:00)
[2017-12-05] MEDS: PAROXETINE 20 MG TAB PO (08:44)
[2017-12-05] MEDS: MESALAMINE (EC) 400 MG CAP PO ×4 (08:44→21:19)
[2017-12-05] MEDS: ASPIRIN 81 MG TAB PO (08:44)
[2017-12-05] MEDS: LEVETIRACETAM 500 MG TAB PO ×2 (08:44→21:18)
[2017-12-05] MEDS: ZINC SULFATE 220 MG CAP PO (08:44)
[2017-12-05] MEDS: DILTIAZEM (CD) 180 MG CAP PO ×2 (08:46→21:20)
[2017-12-05] MEDS: METOPROLOL 50 MG TAB PO ×2 (08:47→21:20)
[2017-12-05] MEDS: HEPARIN 5,000 UNIT/0.5 ML VIAL SC ×2 (08:50→21:22)
[2017-12-05 08:59] LABS: BLOOD UREA NITROGEN 45 mg/dl (7-20); CALCIUM 7.6 mg/dl (8.4-10.2); CARBON DIOXIDE 33 mmol/L (21-31); CHLORIDE 104 mmol/L (97-110); CREATININE 1.38 mg/dl (0.44-1.00); GLUCOSE 82 mg/dl (70-220); MAGNESIUM 1.9 mg/dl (1.7-2.5); PHOSPHORUS 3.4 mg/dl (2.5-4.9); SODIUM 148 mmol/L (135-144)
[2017-12-05 09:03] LABS: ANION GAP 14 (8-16); POTASSIUM 3.4 mmol/L (3.5-5.1)
[2017-12-05 09:14] LABS: ANISOCYTOSIS 1+ (0-0); BAND NEUTROPHILS #M 0.4 10^3/ul (0.0-0.6); BAND NEUTROPHILS % (M) 3 % (0-4); GIANT THROMBO% (M) 1 % (0-0); LYMPHOCYTES #M 1.4 10^3/ul (0.8-2.9); LYMPHOCYTES % (M) 9 % (15-51); METAMYELOCYTES #M 0.3 10^3/ul (0.0-0.0); METAMYELOCYTES %M 2 % (0-0); MONOCYTES % (M) 7 % (0-11); MYELOCYTES #M 0.3 10^3/ul (0.0-0.0); MYELOCYTES % (M) 2 % (0-0); PLATELET ESTIMATE NORMAL; POIKILOCYTOSIS 1+ (0-0); POLYCHROMASIA 1+ (0-0); SEG NEUT #M 12.1 10^3/ul (1.6-7.5); SEGMENTED NEUTROPHILS (M) % 77 % (39-77); SMUDGE%M 1 % (0-0); STOMATOCYTES 1+ (0-0)
[2017-12-05] MEDS: DIGOXIN 500 MCG INJ IV ×2 (11:24→17:24)
[2017-12-05] MEDS: MAGNESIUM SULFATE 2 GM/50 ML 50 ML IVPB (11:25)
[2017-12-05] MEDS: POTASSIUM CHLORIDE (SR) 20 MEQ TAB PO (11:25)
[2017-12-05] MEDS: morphine 2 MG INJ IV (14:16)
[2017-12-05 16:02] LABS: OCCULT BLOOD STOOL NEGATIVE (NEGATIVE)
[2017-12-05] MEDS: SOD FERRIC GLUC COMPLX 125 MG in SOD CHLORIDE 0.9% 100 ML IVPB (17:20)
[2017-12-05] MEDS: MONTELUKAST 10 MG TAB PO (21:18)
[2017-12-06] MEDS: LEVALBUTEROL (NEB) 0.63 MG/3 ML AMP HHN ×3 (01:36→14:07)
[2017-12-06] MEDS: HYDROCODONE/APAP (5/325) TAB PO (01:48)
[2017-12-06] MEDS: ZOLPIDEM 5 MG TAB PO (01:48)
[2017-12-06] MEDS: DILTIAZEM 60 MG TAB PO (04:06)
[2017-12-06] MEDS: BUMETANIDE 1 MG TAB PO (06:38)
[2017-12-06] MEDS: PANTOPRAZOLE (EC) 40 MG TAB PO (06:38)
[2017-12-06] MEDS: LORAZEPAM 0.5 MG TAB PO ×2 (06:38→16:34)
[2017-12-06] MEDS: morphine 2 MG INJ IV ×2 (06:38→14:26)
[2017-12-06 06:56] LABS: ABNORMAL IP MESSAGE 1; HEMATOCRIT 35.3 % (37.0-47.0); HEMOGLOBIN 10.5 g/dl (12.0-16.0); MEAN CORPUSCULAR HEMOGLOBIN 27.1 pg (29.0-33.0); MEAN CORPUSCULAR HGB CONC 29.7 g/dl (32.0-37.0); MEAN PLATELET VOLUME 10.1 fl (7.4-10.4); NUCLEATED RED BLOOD CELLS% 1.1 /100WBC (0.0-0.0); PLATELET COUNT 486 10^3/UL (140-415); RED BLOOD COUNT 3.88 10^6/ul (4.20-5.40); RED CELL DISTRIBUTION WIDTH 19.3 % (11.5-14.5)
[2017-12-06 07:03] LABS: POSITIVE DIFF @See below
[2017-12-06 07:05] LABS: ADD MAN DIFF? YES
[2017-12-06 07:20] LABS: MAGNESIUM 2.1 mg/dl (1.7-2.5)
[2017-12-06 07:28] LABS: ANION GAP 16 (8-16); BLOOD UREA NITROGEN 44 mg/dl (7-20); CALCIUM 9.1 mg/dl (8.4-10.2); CARBON DIOXIDE 39 mmol/L (21-31); CHLORIDE 100 mmol/L (97-110); GLUCOSE 86 mg/dl (70-220); POTASSIUM 3.8 mmol/L (3.5-5.1); SODIUM 151 mmol/L (135-144)
[2017-12-06] MEDS: ASCORBIC ACID 500 MG TAB PO (08:26)
[2017-12-06] MEDS: DOCUSATE SODIUM 100 MG CAP PO (08:27)
[2017-12-06] MEDS: ASPIRIN 81 MG TAB PO (08:27)
[2017-12-06] MEDS: LEVETIRACETAM 500 MG TAB PO (08:27)
[2017-12-06] MEDS: METOPROLOL 50 MG TAB PO (08:28)
[2017-12-06] MEDS: ZINC SULFATE 220 MG CAP PO (08:28)
[2017-12-06] MEDS: HEPARIN 5,000 UNIT/0.5 ML VIAL SC (08:30)
[2017-12-06] MEDS: DILTIAZEM (CD) 180 MG CAP PO (08:30)
[2017-12-06] MEDS: SEVELAMER 400 MG TAB PO ×2 (08:31→11:59)
[2017-12-06] MEDS: PAROXETINE 20 MG TAB PO (08:31)
[2017-12-06] MEDS: predniSONE 10 MG TAB PO (08:31)
[2017-12-06] MEDS: MESALAMINE (EC) 400 MG CAP PO ×3 (08:32→16:34)
[2017-12-06] MEDS: QUETIAPINE 25 MG TAB PO (08:33)
[2017-12-06] MEDS: SACCHAROMYCES BOULARDII 250 MG CAP PO (08:57)
[2017-12-06] MEDS ORDERED: DEXTROSE 5% 1,000 ML IV (09:00)
[2017-12-06 09:01] LABS: ANISOCYTOSIS 3+ (0-0); EOSINOPHILS % (M) 1 % (0-7); ERYTHROBLAST% (NRBC) (M) 1 % (0-0); GIANT THROMBO% (M) 1 % (0-0); HYPOCHROMASIA 1+ (0-0); LYMPHOCYTES #M 1.5 10^3/ul (0.8-2.9); LYMPHOCYTES % (M) 8 % (15-51); METAMYELOCYTES #M 0.3 10^3/ul (0.0-0.0); METAMYELOCYTES %M 2 % (0-0); MICROCYTOSIS 3+ (0-0); MONOCYTE #M 0.9 10^3/ul (0.3-0.9); MONOCYTES % (M) 5 % (0-11); MYELOCYTES #M 0.5 10^3/ul (0.0-0.0); MYELOCYTES % (M) 3 % (0-0); PLATELET ESTIMATE INCREASED; POIKILOCYTOSIS 1+ (0-0); POLYCHROMASIA 3+ (0-0); SEGMENTED NEUTROPHILS (M) % 81 % (39-77); SMUDGE%M 2 % (0-0)
[2017-12-06] MEDS: MAGNESIUM OXIDE 400 MG TAB PO (11:59)
[2017-12-06] MEDS: DEXTROSE 5% 1,000 ML IV (13:40)
[2017-12-06] MEDS: SOD FERRIC GLUC COMPLX 125 MG in SOD CHLORIDE 0.9% 100 ML IVPB (16:35)
== END 2017-12-06 17:45 | disposition home or self-care (01) | DRG 291 ==
LOC: E/R 12:13 → MS4 18:10
DX: I13.0 Hypertensive heart and chronic kidney disease with heart failure and stage 1 through stage 4 chronic kidney disease, or unspecified chronic kidney disease (principal); I50.43 Acute on chronic combined systolic (congestive) and diastolic (congestive) heart failure; J96.01 Acute respiratory failure with hypoxia; J44.1 Chronic obstructive pulmonary disease with (acute) exacerbation; R65.10 Systemic inflammatory response syndrome (SIRS) of non-infectious origin without acute organ dysfunction; N17.9 Acute kidney failure, unspecified; E87.0 Hyperosmolality and hypernatremia; I48.0 Paroxysmal atrial fibrillation; I42.9 Cardiomyopathy, unspecified; I11.0 Hypertensive heart disease with heart failure; E11.22 Type 2 diabetes mellitus with diabetic chronic kidney disease; I27.20 Pulmonary hypertension, unspecified; D63.1 Anemia in chronic kidney disease; N18.3 Chronic kidney disease, stage 3 (moderate); D50.9 Iron deficiency anemia, unspecified; E83.42 Hypomagnesemia; G40.909 Epilepsy, unspecified, not intractable, without status epilepticus; Z79.4 Long term (current) use of insulin; Z79.82 Long term (current) use of aspirin; Z89.421 Acquired absence of other right toe(s); Z87.891 Personal history of nicotine dependence
CPT/HCPCS: 36415; 71045; 80048; 80053; 80061; 82270; 82728; 82962; 83036; 83540; 83735; 83880; 84100; 84436; 84479; 84484; 85025; 87040; 93005; 94640; 94644; 94664; 96374; 96375; 97110; 97161; 97530; 99291-25